=== PATIENT | male | born 1950 ===

== ENCOUNTER 2017-12-23 17:17 | Emergency (ER) | payer OTHER ==
[2017-12-23 17:17] VITALS: BMI 30.7
[2017-12-23 17:37] VITALS: TEMP 98.1
--- NOTE | 2017-12-23 20:03 | C.PDOC ---
History Of Present Illness 67 y/o male presents to the ER complaining of generalized urticarial rash which began as a mild rash about 1 week ago. Patient reports that the rash has become progressively over the past week. Patient denies any change in voice, problem swallowing, and other complaints. Time Seen by Provider: 12/23/17 17:54 Chief Complaint (Nursing): Abnormal Skin Integrity History Per: Patient History/Exam Limitations: no limitations Onset/Duration Of Symptoms: Days Current Symptoms Are (Timing): Still Present Severity: Moderate Past Medical History Reviewed: Historical Data, Nursing Documentation, Vital Signs Vital Signs: Last Vital Signs Temp 98.1 F 12/23/17 17:35 Pulse 70 12/23/17 20:16 Resp 16 12/23/17 20:16 BP 156/88 H 12/23/17 20:16 Pulse Ox 97 12/23/17 20:16 - Medical History PMH: Asthma, Emphysema, Hypercholesterolemia Denies: Chronic Kidney Disease Surgical History: Appendectomy Family History: States: No Known Family Hx - Social History Hx Tobacco Use: Yes (former smoker) Hx Alcohol Use: Yes Hx Substance Use: No - Immunization History Hx Tetanus Toxoid Vaccination: No Hx Influenza Vaccination: No Hx Pneumococcal Vaccination: No Review Of Systems Except As Marked, All Systems Reviewed And Found Negative. Constitutional: Negative for: Fever, Chills Skin: Positive for: Rash Physical Exam - Physical Exam Appears: Non-toxic, No Acute Distress, Other (speaking in full sentences) Skin: Normal Color, Warm, Rash (generalized urticaria mainly in the back) Head: Atraumatic, Normacephalic Eye(s): bilateral: Normal Inspection Nose: Normal Oral Mucosa: Moist Neck: Supple Chest: Symmetrical Cardiovascular: Rhythm Regular Respiratory: Normal Breath Sounds, No Accessory Muscle Use, No Rales, No Rhonchi , No Wheezing Extremity: Normal ROM Neurological/Psych: Oriented x3, Normal Speech, Normal Motor, Normal Sensation ED Course And Treatment O2 Sat by Pulse Oximetry: 99 (RA) Pulse Ox Interpretation: Normal Progress Note: Patient given Benadryl PO, Pepcid IV, and Solu-Medrol IV. On re- evaluation, patient feels better. Disposition - Disposition Referrals: [facility] at [facility] [Outside] Disposition: HOME/ ROUTINE Disposition Time: 20:00 Condition: STABLE Additional Instructions: Follow up with PMD within 1-2 days. Return to ED if feel worse. 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 - Scribe Statement The provider has reviewed the documentation as recorded by the Laura Palmer Provider Attestation All medical record entries made by the Laura were at my direction and personally dictated by me. I have reviewed the chart and agree that the record accurately reflects my personal performance of the history, physical exam, medical decision making, and the department course for this patient. I have also personally directed, reviewed, and agree with the discharge instructions and disposition.
[2017-12-23 20:17] VITALS: BP 156/88; PULSE 70; RESP 16
[2017-12-23 20:36] VITALS: O2SAT 99
== END 2017-12-23 20:16 | disposition home or self-care (01) ==
LOC: C.ER 17:17
DX: L50.9 Urticaria, unspecified (principal); E78.00 Pure hypercholesterolemia, unspecified; J43.9 Emphysema, unspecified; Z87.891 Personal history of nicotine dependence
CPT/HCPCS: 96374; 96375; 99283; J2930

== ENCOUNTER 2018-06-25 10:14 | Emergency (ER) | payer OTHER ==
[2018-06-25 10:14] VITALS: BMI 30.7
[2018-06-25 10:31] VITALS: BP 164/91; PULSE 73; RESP 20; TEMP 98.5; O2SAT 99
--- NOTE | 2018-06-25 10:57 | C.PDOC ---
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 Patient reports that his leg twisted outward during the fall. Patient did not hit his head during the fall nor did he lose consciousness. Patient admits to limited range of motion at the knee joint and difficulty ambulating post fall. (Kyle,Jose Maria Martines) History Per: Patient History/Exam Limitations: no limitations Onset/Duration Of Symptoms: Hrs Current Symptoms Are (Timing): Still Present Severity: Moderate Pain Scale Rating Of: 7 Location: Left medial knee <KyleChelsykathrine Bobbi - Last Filed: 06/25/18 14:36> <Harris Chiu DO - Last Filed: 06/25/18 17:35> Chief Complaint (Nursing): Lower Extremity Problem/Injury Past Medical History - Medical History PMH: Asthma, Emphysema, Hypercholesterolemia Denies: Chronic Kidney Disease Surgical History: Appendectomy Family History: States: Unknown Family Hx - Social History Hx Tobacco Use: Yes (former smoker) Hx Alcohol Use: Yes Hx Substance Use: No - Immunization History Hx Tetanus Toxoid Vaccination: (unk) Hx Influenza Vaccination: No Hx Pneumococcal Vaccination: No <Melly Wrightchrissy Bobbi - Last Filed: 06/25/18 14:36> Vital Signs: Last Vital Signs Temp 98.5 F 06/25/18 10:27 Pulse 73 06/25/18 10:27 Resp 20 06/25/18 10:27 BP 164/91 H 06/25/18 10:27 Pulse Ox 99 06/25/18 14:40 Review Of Systems Constitutional: Negative for: Fever, Chills, Weakness Eyes: Negative for: Pain Cardiovascular: Negative for: Chest Pain, Palpitations, Orthopnea Respiratory: Negative for: Shortness of Breath Musculoskeletal: Positive for: Leg Pain, Other (Left medial knee pain ) Neurological: Negative for: Weakness, Confusion, Altered Mental Status, Headache , Dizziness <MonroeChelsykathrine Bobbi - Last Filed: 06/25/18 14:36> Physical Exam - Physical Exam Appears: Well Skin: Normal Color, Warm Head: Atraumatic, Normacephalic Eye(s): bilateral: PERRL, EOMI Oral Mucosa: Moist Neck: Normal, Normal ROM Cardiovascular: Rhythm Regular Respiratory: Normal Breath Sounds Gastrointestinal/Abdominal: Normal Exam, Bowel Sounds, Soft, Tenderness Back: Normal Inspection Extremity: Other (Left medial knee pain; decrease range of motion with flexion, extension and internal and external rotation. Normal ROM at the ankle joint and DP/PT Pulses present ) Extremity: Left: Bony Point Tenderness (Knee Joint ) Pulses: Left Dorsalis Pedis: Normal Neurological/Psych: Oriented x3, Normal Speech, Normal Cognition, Normal Cranial Nerves <Jose Maria Wright - Last Filed: 06/25/18 14:36> ED Course And Treatment O2 Sat by Pulse Oximetry: 99 <Jose Maria Wright - Last Filed: 06/25/18 14:36> Medical Decision Making <Jose Maria Wright - Last Filed: 06/25/18 14:36> <Harris Chiu DO - Last Filed: 06/25/18 17:35> Medical Decision Making: Left Knee X-ray:No fracture or lytic lesion appreciated. No dislocation. Osteoarthrosis-medial femoral tibial compartment most notably affected Left Hip X-ray :No fracture or dislocation. Bilateral hip osteoarthrosis. Inferior lumbosacral marginal osteophytosis and blending facet hypertrophic arthrosis suggested Left tibula/fibula X-ray : Unremarkable radiographs of the left tibia and fibula. (Jose Maria Wright) Disposition - Disposition Disposition Time: 13:30 <Jose Maria Wright - Last Filed: 06/25/18 14:36> - Disposition Disposition Time: 12:40 <Harris Chiu DO - Last Filed: 06/25/18 17:35> - Disposition Referrals: [facility] [Outside] [facility] [Outside] Disposition: HOME/ ROUTINE Condition: STABLE Additional Instructions: MARCELLA DEMARCO, thank you for letting us take care of you today. The emergency medical care you received today was directed at your acute symptoms. If you were prescribed any medication, please fill it and take as directed. It may take several days for your symptoms to resolve. Return to the Emergency Department if your symptoms worsen, do not improve, or if you have any other problems. Please contact your doctor or call one of the physicians/clinics you have been referred to that are listed on the Patient Visit Information form that is included in your discharge packet. Bring any paperwork you were given at discharge with you along with any medications you are taking to your follow up visit. Our treatment cannot replace ongoing medical care by a primary care provider outside of the emergency department. Thank you for allowing the [facility] team to be part of your care today. Follow up with the clinic in 3-5 days for re-evaluation and further management. MARCELLA DAV, maricruz por dejarnos atenderlo hoy. La atencin mdica de emergencia que recibi hoy estaba dirigida a smitha sntomas agudos. Si le prescribieron alg n medicamento, llnelo y tome segn las indicaciones. Smitha sntomas pueden tardar varios uribe en resolverse. Regrese al Departamento de Emergencia si smitha s ntomas empeoran, no mejoran o si tiene algn otro problema. Comunquese con calvillo mdico o llame a anastacia de los mdicos / clnicas a los que fritz sido referido que figura en el formulario de Informacin de visita del paciente que se incluye en calvillo paquete de terrence. Traiga todos los documentos que recibi al momento del terrence junto con los medicamentos que est tomando en calvillo visita de seguimiento. Nuestro tratamiento no puede reemplazar la atencin mdica en curso por un proveedor de atencin primaria fuera del departamento de emergencia. Maricruz por permitir que el equipo de [facility] sea parte de calvillo cuidado hoy. Jocelin un seguimiento con la clnica en 3-5 uribe para la reevaluacin y la administracin adicional. Prescriptions: Ibuprofen [Motrin] 600 mg PO Q6 PRN #20 tab PRN Reason: Pain, Moderate (4-7) Instructions: Osteoarthritis (DC), Knee Pain (DC) Forms: Gen Discharge Inst Georgian, [employer] (Georgian), Work Excuse Print Language: TURKMEN - Clinical Impression Clinical Impression: Pain of left knee after injury - PA / ACCORDION MAKER / Resident Statement / has reviewed & agrees with the documentation as recorded. / has examined the patient and agrees with the treatment plan. <Harris Chiu DO - Last Filed: 06/25/18 17:35>
--- NOTE | 2018-06-25 12:32 | RAD ---
Date of service: 06/25/2018 PROCEDURE: Radiographs of the left tibia and fibula. HISTORY: Status post fall from 2-3 feet ladder COMPARISON: None available. TECHNIQUE: Frontal and lateral views obtained. FINDINGS: BONES: No fracture or destructive lesion. JOINT SPACES: Unremarkable. OTHER FINDINGS: None. IMPRESSION: Unremarkable radiographs of the left tibia and fibula.
--- NOTE | 2018-06-25 12:33 | RAD ---
Date of service: 06/25/2018 PROCEDURE: Left Knee Radiographs. HISTORY: Pain. COMPARISON: None. FINDINGS: BONES: No fracture appreciated JOINTS: Osteoarthrosis JOINT EFFUSION: None. OTHER FINDINGS: None. IMPRESSION: No fracture or lytic lesion appreciated. No dislocation. Osteoarthrosis-medial femoral tibial compartment most notably affected
--- NOTE | 2018-06-25 12:37 | RAD ---
Date of service: 06/25/2018 PROCEDURE: HISTORY: Status fall from 2-3 ft ladder COMPARISON: None TECHNIQUE: AP pelvis and frog's leg view. FINDINGS: Superolateral and inferomedial acetabular spurring. Minimal bilateral superolateral hip joint space narrowing. No fracture or dislocation. No lytic lesions. Sacral iliac and pubic symphyseal joints without gross significant appearing arthrosis. Inferior lumbosacral marginal osteophytosis and blending facet hypertrophic arthrosis suggested IMPRESSION: No fracture or dislocation. Bilateral hip osteoarthrosis Inferior lumbosacral marginal osteophytosis and blending facet hypertrophic arthrosis suggested
== END 2018-06-25 13:31 | disposition home or self-care (01) ==
LOC: C.ER 10:14
DX: M25.562 Pain in left knee (principal)

== ENCOUNTER 2018-08-03 16:40 | Emergency (ER) | payer OTHER ==
[2018-08-03 16:40] VITALS: BMI 30.7
--- NOTE | 2018-08-03 16:45 | C.PDOC ---
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 As per pt, " was closing work site and heavy metal beam fell down on top of Right foot". Pt reports, pain is localized over dorsum of Right foot, small puncture wound, unable to ambulate due to pain over Right foot. Otherwise, pt denies head injury , LOC, syncope, denies obvious deformity, weakness, sensory or vascular deficits to Right foot. Time Seen by Provider: 08/03/18 16:42 Chief Complaint (Nursing): Lower Extremity Problem/Injury History Per: Patient Onset/Duration Of Symptoms: Sudden Onset Past Medical History Reviewed: Historical Data, Nursing Documentation, Vital Signs Vital Signs: Last Vital Signs Temp 98.7 F 08/03/18 17:12 Pulse 82 08/03/18 17:12 Resp 18 08/03/18 17:12 BP 172/97 H 08/03/18 17:12 Pulse Ox 98 08/03/18 17:26 - Medical History PMH: Asthma, Emphysema, Hypercholesterolemia Denies: Chronic Kidney Disease Surgical History: Appendectomy Family History: States: Unknown Family Hx - Social History Hx Tobacco Use: Yes (former smoker) Hx Alcohol Use: Yes Hx Substance Use: No - Immunization History Hx Tetanus Toxoid Vaccination: No (unk) Hx Influenza Vaccination: No Hx Pneumococcal Vaccination: No Review Of Systems Except As Marked, All Systems Reviewed And Found Negative. Constitutional: Negative for: Fever, Chills Eyes: Negative for: Vision Change ENT: Negative for: Throat Pain Cardiovascular: Negative for: Chest Pain Respiratory: Negative for: Shortness of Breath Gastrointestinal: Negative for: Nausea, Vomiting Musculoskeletal: Positive for: Foot Pain (Right ). Negative for: Neck Pain, Back Pain Skin: Positive for: Lesions Neurological: Negative for: Weakness, Numbness, Altered Mental Status, Headache , Dizziness Physical Exam - Physical Exam Appears: Well, Non-toxic, Other (appears anxious, in pain) Skin: Normal Color, Warm, Other (small puncture woun lina dorsal aspect Right foot with small localized hematoma.) Head: Atraumatic, Normacephalic Eye(s): bilateral: PERRL Extremity: Normal ROM (decrease over right foot du eto pain), Tenderness ( diffuse dorsal asepct Right foot), No Calf Tenderness, Capillary Refill (less than 2 sec to Right foot), No Deformity, Swelling (dorsal aspect Right foot) Pulses: Right Femoral: Normal, Right Dorsalis Pedis: Normal DTR: Ankle (R): 2+ Neurological/Psych: Oriented x3, Normal Speech, Normal Motor, Normal Sensation ED Course And Treatment O2 Sat by Pulse Oximetry: 98 Pulse Ox Interpretation: Normal - Other Rad Right foot X-Ray: Interpreted by Me, Read By Radiologist Interpretation: (-) acute fx or dislocation Progress Note: Tetanus given. Puncture wound over dorsal aspect right foot thoroughly cleaned, closed with skin adhesives. Imaging review (-) acute fx. case discussed with Podiatry resident, who eval pt in ED. Compression dressing applied. Pt was provided crutches for ambulation/partial weight bearing. Pt advised and ref. to f/u with Podiatry Clinic on Friday aftrenoon for re-eval. return to Ed at any time if any worsening or new changes. Laceration - Laceration Repair Dorsal aspect Right foot Wound Length (In cm): 1cm Description Of Wound: Linear Wound Cleansed With: Betadine Wound Examination: Irrigated With Saline, No FB With Wound Exploration, No Tendon Injury With Wound Exploration Wound Closure: Steri Strips, Skin Glue Wound Complexity: Simple Disposition Counseled Patient/Family Regarding: Studies Performed, Diagnosis, Need For Followup, Rx Given - Disposition Referrals: [facility] [Outside] Podiatry Clinic [Outside] Disposition: HOME/ ROUTINE Disposition Time: 17:25 Condition: STABLE Additional Instructions: RICE-REST,ICE,COMPRESSION,ELEVATION TAKE PAIN MEDICATION NEED PRESCRIBED FOLLOW UP WITH PODIATRY CLINIC ON FRIDAY AFTERNOON 12PM-3PM FOR RE-EVALUATION. RETURN TO ED AT ANY TIME IF ANY WORSENING OR NEW CHANGES./ Prescriptions: traMADol [Ultram] 50 mg PO TID #10 tab Instructions: Contusion (DC), Foot Sprain (DC) Forms: [employer] Connect (Lithuanian), Work Excuse Print Language: PORTUGUESE - Clinical Impression Clinical Impression: Foot contusion, Hematoma
[2018-08-03] MEDS ORDERED: Tetanus/Diphtheria Toxoids 0.5 ml Syringe IM ONE ×2 (16:51→16:57)
[2018-08-03 17:16] VITALS: BP 172/97; PULSE 82; RESP 18; TEMP 98.7; O2SAT 98
--- NOTE | 2018-08-03 17:17 | RAD ---
Date of service: 08/03/2018 PROCEDURE: Right Foot Radiographs. HISTORY: injury COMPARISON: None. FINDINGS: BONES: Bone alignment and mineralization are normal. There is no acute displaced fracture or bone destruction. JOINTS: Normal. SOFT TISSUES: Moderate dorsal soft tissue swelling OTHER FINDINGS: None. IMPRESSION: No acute fracture or dislocation.
--- NOTE | 2018-08-03 18:12 | CP.PCM.CON ---
History of Present Illness - History of Present Illness History of Present Illness: Podiatry consult note for Dr. Nassar: 68 yo seen and evaluated in the ED for right foot trauma. States that he was at work a few hours ago and he dropped a 100 pound window frame on his foot. States that he was unable to walk after the incident happened. States that all the pain is in the middle and on the top of his right foot and he does not have pain in his toes or in his leg. Denies N/V/f/c/SOB/CP/ pain in calf. Has no other pedal complaints at this time. PMHx asthma, emphysema, CHF PSHx appendectomy All NKDA Past Patient History - Past Medical History & Family History Past Medical History?: Yes - Past Social History Smoking Status: Former Smoker - CARDIAC Hx Hypercholesterolemia: Yes - PULMONARY Hx Asthma: Yes Hx Emphysema: Yes - NEUROLOGICAL Hx Neurological Disorder: No - HEENT Hx HEENT Problems: Yes Other/Comment: Right eye cataract- surgery - RENAL Hx Chronic Kidney Disease: No - ENDOCRINE/METABOLIC Hx Endocrine Disorders: No - HEMATOLOGICAL/ONCOLOGICAL Hx Blood Disorders: No - INTEGUMENTARY Hx Dermatological Problems: No - MUSCULOSKELETAL/RHEUMATOLOGICAL Hx Musculoskeletal Disorders: Yes Hx Falls: No Other/Comment: right knee surgery states over 10 years ago, states orginal problem has been resolved - GASTROINTESTINAL Hx Gastrointestinal Disorders: No - GENITOURINARY/GYNECOLOGICAL Hx Genitourinary Disorders: No - PSYCHIATRIC Hx Substance Use: No - SURGICAL HISTORY Hx Appendectomy: Yes - ANESTHESIA Hx Anesthesia: Yes Hx Anesthesia Reactions: No Hx Malignant Hyperthermia: No Meds Home Medications: Home Medication List Medication Instructions Recorded Confirmed Type traMADol [Ultram] 50 mg PO TID #10 tab 08/03/18 Rx Allergies/Adverse Reactions: Allergies Allergy/AdvReac Type Severity Reaction Status Date / Time No Known Allergies Allergy Verified 08/03/18 16:46 Physical Exam - Constitutional Appears: Well, Non-toxic, No Acute Distress - Head Exam Head Exam: ATRAUMATIC, NORMOCEPHALIC - Extremities Exam Additional comments: RLE focused exam Vasc: DP pulse nonpalpable secondary to guarding on palpation, PT 1/4; cap refill <3 seconds to all digits; mild edema noted at dorsal midfoot; temp gradient warm to cool from proximal to distal Derm: superficial abrasion noted to the dorsum of the midfoot, does not probe, no pus or purulent drainage, mild erythema adjacent to abrasion, no streaking, no clinical signs of infection; mild eccyhmosis about the trauma site Ortho: severe pain on palpation at the dorsal midfoot, no pain at the calcaneus , achilles, or lower leg, no pain at the toes; piano bull test unable to perform due to guarding; ROM at the ankle wnl and does not elicit pain; pain on extending and flexing toes Neuro: gross and protective sensation intact - Neurological Exam Neurological exam: Alert, Oriented x3 - Psychiatric Exam Psychiatric exam: Normal Affect, Normal Mood Results - Vital Signs Recent Vital Signs: Last Vital Signs Temp 98.7 F 08/03/18 17:12 Pulse 82 08/03/18 17:12 Resp 18 08/03/18 17:12 BP 172/97 H 08/03/18 17:12 Pulse Ox 98 08/03/18 17:52 Assessment & Plan - Assessment and Plan (Free Text) Assessment: 68 yo seen and evaluated in the ED for right foot contusion Plan: Patient seen and evaluated Discussed in detail with Dr. Nassar X-rays reviewed - no acute fracture noted to right foot Steristrips applied at abrasion at the dorsal midfoot Modified burgos compression dressing applied to the right lower leg Surgical shoe dispensed and instructed patient ambulate to tolerance at the heel Will follow up in clinic with Dr. Nassar in one week Patient stable for discharge - thank you for the consult - Date & Time Date: 08/03/18 Time: 18:19
== END 2018-08-03 18:21 | disposition home or self-care (01) ==
LOC: C.ER 16:40
DX: S90.31XA Contusion of right foot, initial encounter (principal); W22.8XXA Striking against or struck by other objects, initial encounter; Y92.89 Other specified places as the place of occurrence of the external cause; Y99.0 Civilian activity done for income or pay; Z23 Encounter for immunization

== ENCOUNTER 2018-11-19 08:48 | Outpatient (CLI) | payer OTHER | END 2018-11-19 08:49 | disposition home or self-care (01) | LOC: C.CARD 08:49 ==

== ENCOUNTER 2018-12-04 10:03 | Outpatient (CLI) | payer SELFPAY, OTHER | END 2018-12-04 10:04 | disposition home or self-care (01) | LOC: C.RT 10:03 | DX: J43.9 Emphysema, unspecified (principal) ==

== ENCOUNTER 2019-02-16 19:51 | Inpatient (IN) | payer MEDICARE, SELFPAY ==
[2019-02-16 19:52] VITALS: BMI 30.7
--- NOTE | 2019-02-16 20:34 | C.PDOC ---
History Of Present Illness Patient presents to the ED c/o abdominal pain, reports he sneezed and felt "something explode inside his abdomen". Patient denies fever, chills, nausea, vomit, diarrhea, CP, SOB, palpitations. Time Seen by Provider: 02/16/19 20:33 Chief Complaint (Nursing): Abdominal Pain History Per: Patient History/Exam Limitations: no limitations Onset/Duration Of Symptoms: Hrs Current Symptoms Are (Timing): Still Present Severity: Severe Pain Scale Rating Of: 7 Location Of Pain/Discomfort: Periumbilical Quality Of Discomfort: "Pain" Associated Symptoms: denies: Nausea, Vomiting, Diarrhea, Urinary Symptoms Recent travel outside of the [place]: No Additional History Per: Patient Past Medical History Reviewed: Historical Data, Nursing Documentation, Vital Signs Vital Signs: Last Vital Signs Temp 98.0 F 02/16/19 19:59 Pulse 103 H 02/16/19 19:59 Resp 18 02/16/19 19:59 BP 149/92 H 02/16/19 19:59 Pulse Ox 95 02/16/19 19:59 - Medical History PMH: Asthma, Emphysema, Hypercholesterolemia Denies: Chronic Kidney Disease Surgical History: Appendectomy Family History: States: Unknown Family Hx - Social History Hx Tobacco Use: Yes (former smoker) Hx Alcohol Use: Yes Hx Substance Use: No - Immunization History Hx Tetanus Toxoid Vaccination: No (unk) Hx Influenza Vaccination: Yes Hx Pneumococcal Vaccination: No Review Of Systems Constitutional: Negative for: Fever, Chills Cardiovascular: Negative for: Chest Pain Respiratory: Negative for: Shortness of Breath Gastrointestinal: Positive for: Abdominal Pain. Negative for: Nausea, Vomiting, Diarrhea Genitourinary: Negative for: Dysuria Skin: Negative for: Rash Neurological: Negative for: Weakness, Numbness Physical Exam - Physical Exam Appears: Non-toxic, In Acute Distress Skin: Warm, Dry Head: Normacephalic Eye(s): bilateral: Normal Inspection Oral Mucosa: Moist Neck: Supple Chest: Symmetrical Cardiovascular: Rhythm Regular Respiratory: No Rales, No Rhonchi, Wheezing (scattered) Gastrointestinal/Abdominal: Distention, No Guarding, No Rebound, Hernia (large 10x12 cm supraumbilical hernia, erythematous, tender to palpation, unable to reduce) Extremity: Bilateral: Atraumatic, Normal Color And Temperature, Normal ROM Neurological/Psych: Oriented x3, Normal Speech, Normal Cognition Gait: Steady ED Course And Treatment - Laboratory Results Result Diagrams: 02/16/19 21:31 02/16/19 21:31 ECG: Interpreted By Me, Viewed By Me ECG Rhythm: Sinus Rhythm (83), L BBB O2 Sat by Pulse Oximetry: 95 (ON RA) Pulse Ox Interpretation: Normal - CT Scan/US CT abd/pelvis Other Rad Studies (CT/US): Read By Radiologist, Radiology Report Reviewed CT/US Interpretation: EXAM: CT Abdomen and Pelvis with IV contrast. CLINICAL HISTORY: Abd pain and incarcerated hernia. TECHNIQUE: Axial computed tomography images of the abdomen and pelvis with intravenous contrast. 0.00 mGy-cm. CONTRAST: With; 100MLS VISI 320. COMPARISON: None provided. FINDINGS: LUNG BASES: The visualized heart is mildly enlarged. LIVER: Mild diffuse fatty infiltration of liver. GALLBLADDER AND BILE DUCTS: The gallbladder appears within normal limits. No radioopaque gallstones are seen. No biliary ductal dilatation is evident. PANCREAS: Unremarkable. SPLEEN: Unremarkable. ADRENAL GLANDS: Unremarkable. KIDNEYS, URETERS, AND BLADDER: Small cyst at the lower pole of the right kidney measuring 1.2 cm. Bladder is decompressed. STOMACH AND BOWEL: Tiny hiatal hernia. Stomach is decompressed. APPENDIX: No evidence of acute appendicitis on CT examination. PERITONEUM: No free fluid. No free air. LYMPH NODES: No lymphadenopathy is evident. REPRODUCTIVE: Unremarkable as visualized. VASCULATURE: Mild atherosclerosis of the lower abdominal aorta. BONES: Mild multilevel degenerative spine changes. MISCELLANEOUS: At the upper abdomen in the midline is a ventral hernia containing only fat. This measures 8.0 x 3.2 cm on series 2, image 28. There is some inflammatory stranding within this fat suggesting the possibility of strangulation or incarceration. Please correlate clinically. There are small, left greater than right fat containing inguinal hernias. IMPRESSION: 1. The visualized heart is mildly enlarged. 2. Mild diffuse fatty infiltration of liver. 3. At the upper abdomen in the midline is a ventral hernia containing only fat. This measures 8.0 x 3.2 cm on series 2, image 28. There is some inflammatory stranding within this fat suggesting the possibility of strangulation or incarceration. Please correlate clinically. 4. Small cyst at t he lower pole of the right kidney measuring 1.2 cm. 5. Tiny hiatal hernia. 6. There are small, left greater than right fat containing inguinal hernias. . Electronically signed on Feb 17, 2019 12:40:47 AM EDT by: Adair Mortensen M.D., Certified by [facility], Diagnostic Radiology Progress Note: Plan: - VBG. - CT abd/pelvis. - EKG. - Labs. - Morphine 2 mg IVP. - Protonix 40 mg IVP. - IV fluids. - Zofran 4 mg IVP. - Zosyn IVPB. - UA. spoke with the vice president talent management. will see the pt Critical Care Time - Critical Care Note Total Time (in mins): 30 Documented critical care: time excludes all time spent performing seperately billable procedures. Disposition Discussed With Dr.: Mehrdad Caba Comment: accepted the pt on his service and took over the care at 12:54 AM Counseled Patient/Family Regarding: Studies Performed, Diagnosis - Disposition Disposition: HOSPITALIZED Disposition Time: 20:33 Condition: GUARDED Forms: [employer] (Thai) - Clinical Impression Clinical Impression: Abdominal pain, Incarcerated hernia - Scribe Statement The provider has reviewed the documentation as recorded by the Scribe Jesse Cavazos All medical record entries made by the Scribe were at my direction and personally dictated by me. I have reviewed the chart and agree that the record accurately reflects my personal performance of the history, physical exam, medical decision making, and the department course for this patient. I have also personally directed, reviewed, and agree with the discharge instructions and disposition. Decision To Admit - Pt Status Changed To: Hospital Disposition Of: Inpatient - Admit Certification Admit to Inpatient:: After my assessment, the patient will require hospitalization for at least two midnights. This is because of the severity of symptoms shown, intensity of services needed, and/or the medical risk in this patient being treated as an outpatient. - InPatient: Physician Admission Certification:: After my assessment, the patient will require hospitalization for at least two midnights. This is because of the severity of symptoms shown, intensity of services needed, and/or the medical ri sk in this patient being treated as an outpatient. - . Bed Request Type: Regular Admitting Physician: Mehrdad Caba Patient Diagnosis: Abdominal pain, Incarcerated hernia
[2019-02-16] MEDS ORDERED: Piperacillin/Tazobact 3.375 GM in Sodium Chloride 100 ML IVPB STA (21:09)
[2019-02-16] MEDS ORDERED: Sodium Chloride 0.9% 1,000 ML IV ONE (21:09)
[2019-02-16 21:28] LABS: VENOUS BLOOD GAS BASE EXCESS -3.4 mmol/L (0.0-2.0); VENOUS BLOOD GAS PCO2 32 mmHg (40-60); VENOUS BLOOD GAS PO2 46 mm/Hg (30-55); VENOUS BLOOD PH 7.41 (7.32-7.43)
[2019-02-16 21:37] LABS: BASO # 0.1 K/uL (0.0-0.2); BASO % 1.2 % (0.0-2.0); EOS # 0.5 K/uL (0.0-0.7); EOS % 5.7 % (0.0-4.0); HEMOGLOBIN 14.6 g/dL (12.0-18.0); LYMPH # 3.1 K/uL (1.0-4.3); LYMPH % 37.3 % (20.0-40.0); MEAN CELL VOLUME 92.2 fL (80.0-94.0); MEAN CORPUSCULAR HEMOGLOBIN 30.7 pg (27.0-31.0); MEAN CORPUSCULAR HGB CONC 33.3 g/dL (33.0-37.0); MEAN PLATELET VOLUME 8.6 fL (7.2-11.7); MONO # 1.1 K/uL (0.0-0.8); MONO % 12.6 % (0.0-10.0); NEUT # 3.6 K/uL (1.8-7.0); NEUT % 43.2 % (50.0-75.0); NRBC % 0.1 % (0.0-2.0); RBC 4.74 Mil/uL (4.40-5.90); RED CELL DISTRIBUTION WIDTH 13.6 % (11.5-14.5); WHITE BLOOD COUNT 8.4 K/uL (4.8-10.8)
[2019-02-16 21:48] LABS: ALB/GLOB RATIO 1.4 (1.0-2.1); ALBUMIN 4.4 g/dL (3.5-5.0); ALT/SGPT 32 U/L (21-72); AST/SGOT 33 U/L (17-59); BLOOD UREA NITROGEN 17 mg/dL (9-20); CALCIUM 9.6 mg/dl (8.6-10.4); GFR NON-AFRICAN AMERICAN 55; LIPASE 111 U/L (23-300)
[2019-02-16 21:52] LABS: INR 1.1; PROTHROMBIN TIME 12.2 SECONDS (9.7-12.2)
[2019-02-16] MEDS ORDERED: Piperacillin/Tazobact 3.375 gm 100 ML IVPB ONE (22:00)
[2019-02-16] MEDS ORDERED: Iodixanol 320 MG/ML 100 ML BOTTLE IV ONE (22:04)
[2019-02-16 22:50] LABS: SQUAMOUS EPITHIAL < 1 /hpf (0-5); URINE BILIRUBIN NEGATIVE (NEGATIVE); URINE BLOOD NEGATIVE (NEGATIVE); URINE CLARITY Clear (Clear); URINE COLOR Yellow (YELLOW); URINE GLUCOSE (UA) NORMAL (Normal); URINE LEUKOCYTE ESTERASE NEG Leu/uL (Negative); URINE PROTEIN NEGATIVE (NEGATIVE); URINE UROBILINOGEN NORMAL mg/dL (0.2-1.0)
[2019-02-17] MEDS ORDERED: Lactated Ringer's 1,000 ML IV ONE (01:33)
[2019-02-17] MEDS ORDERED: Lactated Ringer's 1,000 ML IV SCH ×2 (01:45→02:09)
[2019-02-17] MEDS ORDERED: Piperacillin/Tazobact 3.375 GM in Sodium Chloride 100 ML IVPB SCH (01:45)
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
--- NOTE | 2019-02-17 02:36 | CP.PCM.HP ---
<Cara Garcia - Last Filed: 02/17/19 06:13> History of Present Illness - History of Present Illness History of Present Illness: cc: "my stomach popped" Mr. Vargas is a M with a PMH CHF, COPD, HLD, CAD presents to the ED with irreducible bump in his stomach. He reports having a hernia for years, but after coughing fit this afternoon, the bump does not go down and started to hurt. He was able to eat lunch immediately before the bursting sensation. He has not had a BM nor passed gas since the bursting feeling. Walking, sitting up, and coughing make the bulge bigger. The patient did not do anything to try to make the bulge smaller. Denies fever, chills, chest pain, shortness of breath, headache, palpitations. He recently got foot surgery with Dr. Nassar. He has been attending follow up appointments but still has two sutures remaining. PMH: CHF, COPD, HLD, CAD Med: Ventolin, Symbicort, Incruse Ellipta, Coreg, Cozaar, Spiriva All: NKDA PSxHx: Appy, Total knee 2010, R foot 11/2018, tilt table for syncope FamHx: unknown SocHx: quit smoking 16 years ago, social drinking, denies drug. 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 Full Code Proxy: Inna [phone] Present on Admission - Present on Admission Any Indicators Present on Admission: No Review of Systems - Constitutional Constitutional: absent: Chills, Fever, Weakness - Gastrointestinal Gastrointestinal: absent: Constipation, Diarrhea, Nausea, Vomiting - Genitourinary Genitourinary: absent: Dysuria Past Patient History - Infectious Disease Hx of Infectious Diseases: None - Past Medical History & Family History Past Medical History?: Yes - Past Social History Smoking Status: Former Smoker Alcohol: Social Drugs: Denies - CARDIAC Hx Hypercholesterolemia: Yes - PULMONARY Hx Asthma: Yes Hx Emphysema: Yes - NEUROLOGICAL Hx Neurological Disorder: No - HEENT Hx HEENT Problems: Yes Other/Comment: Right eye cataract- surgery - RENAL Hx Chronic Kidney Disease: No - ENDOCRINE/METABOLIC Hx Endocrine Disorders: No - HEMATOLOGICAL/ONCOLOGICAL Hx Blood Disorders: No - INTEGUMENTARY Hx Dermatological Problems: No - MUSCULOSKELETAL/RHEUMATOLOGICAL Hx Musculoskeletal Disorders: Yes Hx Falls: No Other/Comment: right knee surgery states over 10 years ago, states orginal problem has been resolved - GASTROINTESTINAL Hx Gastrointestinal Disorders: No - GENITOURINARY/GYNECOLOGICAL Hx Genitourinary Disorders: No - PSYCHIATRIC Hx Substance Use: No - SURGICAL HISTORY Hx Appendectomy: Yes - ANESTHESIA Hx Anesthesia: Yes Hx Anesthesia Reactions: No Hx Malignant Hyperthermia: No Meds Allergies/Adverse Reactions: Allergies Allergy/AdvReac Type Severity Reaction Status Date / Time No Known Allergies Allergy Verified 02/16/19 20:02 Physical Exam - Constitutional Appears: Well, Non-toxic, No Acute Distress - Head Exam Head Exam: ATRAUMATIC, NORMOCEPHALIC - Eye Exam Eye Exam: EOMI, Normal appearance, PERRL Pupil Exam: NORMAL ACCOMODATION Additional comments: glasses - ENT Exam ENT Exam: Mucous Membranes Moist - Neck Exam Neck exam: Positive for: Normal Inspection - Respiratory Exam Respiratory Exam: Wheezes, NORMAL BREATHING PATTERN Additional comments: diffuse expiratory wheezes supplemental O2 via NC - Cardiovascular Exam Cardiovascular Exam: REGULAR RHYTHM, +S1, +S2. absent: Systolic Murmur - GI/Abdominal Exam GI & Abdominal Exam: Distended, Guarding, Hernia (umbilical and large ventral hernia, unreducible), Hypoactive Bowel Sounds, Soft. absent: Rigid Additional comments: obese - Extremities Exam Extremities exam: Positive for: pedal pulses present - Back Exam Back exam: absent: CVA tenderness (L), CVA tenderness (R) - Neurological Exam Neurological exam: Alert, CN II-XII Intact, Oriented x3, Reflexes Normal - Skin Skin Exam: Dry, Intact, Normal Color, Warm Results - Vital Signs Recent Vital Signs: Last Vital Signs Temp 98.7 F 02/17/19 00:17 Pulse 76 02/17/19 00:17 Resp 18 02/17/19 00:17 BP 132/85 02/17/19 00:17 Pulse Ox 95 02/17/19 00:55 - Labs Result Diagrams: 02/16/19 21:31 02/16/19 21:31 Labs: Laboratory Results - last 24 hr 02/16/19 02/16/19 02/16/19 21:25 21:31 21:31 WBC 8.4 RBC 4.74 Hgb 14.6 Hct 43.7 MCV 92.2 MCH 30.7 MCHC 33.3 RDW 13.6 Plt Count 246 MPV 8.6 Neut % (Auto) 43.2 L Lymph % (Auto) 37.3 [place] % (Auto) 12.6 H Eos % (Auto) 5.7 H Baso % (Auto) 1.2 Neut # (Auto) 3.6 Lymph # (Auto) 3.1 [place] # (Auto) 1.1 H Eos # (Auto) 0.5 Baso # (Auto) 0.1 PT 12.2 INR 1.1 APTT 39 H pO2 46 VBG pH 7.41 VBG pCO2 32 L VBG HCO3 21.9 VBG Total CO2 21.3 L VBG O2 Sat (Calc) 87.7 H VBG Base Excess -3.4 L VBG Potassium 2.6 L Sodium 146.0 Chloride 115.0 H Glucose 61 L Lactate 1.3 Potassium Carbon Dioxide Anion Gap BUN Creatinine Est GFR ( Amer) Est GFR (Non-Af Amer) Random Glucose Calcium Total Bilirubin AST ALT Alkaline Phosphatase Total Protein Albumin Globulin Albumin/Globulin Ratio Lipase Venous Blood Potassium 2.6 L Urine Color Urine Clarity Urine pH Ur Specific [place] Urine Protein Urine Glucose (UA) Urine Ketones Urine Blood Urine Nitrate Urine Bilirubin Urine Urobilinogen Ur Leukocyte Esterase Urine WBC (Auto) Urine RBC (Auto) Ur Squamous Epith Cells 02/16/19 02/16/19 21:31 22:34 WBC RBC Hgb Hct MCV MCH MCHC RDW Plt Count MPV Neut % (Auto) Lymph % (Auto) [place] % (Auto) Eos % (Auto) Baso % (Auto) Neut # (Auto) Lymph # (Auto) [place] # (Auto) Eos # (Auto) Baso # (Auto) PT INR APTT pO2 VBG pH VBG pCO2 VBG HCO3 VBG Total CO2 VBG O2 Sat (Calc) VBG Base Excess VBG Potassium Sodium 141 Chloride 101 Glucose Lactate Potassium 4.5 Carbon Dioxide 30 Anion Gap 14 BUN 17 Creatinine 1.3 Est GFR ( Amer) > 60 Est GFR (Non-Af Amer) 55 Random Glucose 88 Calcium 9.6 Total Bilirubin 0.4 AST 33 ALT 32 Alkaline Phosphatase 66 Total Protein 7.6 Albumin 4.4 Globulin 3.2 Albumin/Globulin Ratio 1.4 Lipase 111 Venous Blood Potassium Urine Color Yellow Urine Clarity Clear Urine pH 6.0 Ur Specific [place] 1.016 Urine Protein Negative Urine Glucose (UA) Normal Urine Ketones Negative Urine Blood Negative Urine Nitrate Negative Urine Bilirubin Negative Urine Urobilinogen Normal Ur Leukocyte Esterase Neg Urine WBC (Auto) 1 Urine RBC (Auto) 2 Ur Squamous Epith Cells < 1 Assessment & Plan - Assessment and Plan (Free Text) Assessment: 68yo M PMH CHF, COPD, HLD admitted for strangulated ventral abdominal hernia. Plan: Incarcerated Ventral Abdominal hernia CT A/P with contrast (02/16): pending read. prelim: 8.0x3.2cm ventral hernia containing only fat with stranding suggesting the possibility of strangulation or incarceration. 1L NS, Zofran x1, Morphine 2mg, Protonix given in ED 1L LR bolus given per surgery - Zosyn 3.375gm IVPB q6 (started 02/16) - Morphine 0.5mg q4 prn for mild pain - Morphine 1mg q4 prn for mod pain - Zofran 4mg IVP q6 prn - considering patient's Hx of heart disease, NSAIDs CI - Surgery consulted: Dr. Felisha gilmore appreciated - NPO except meds for OR - f/u CXR - Cardio and Pulm consulted for clearance HFrEF EKG unchanged from 2017 ECHO (11/19/18): LVEF 41% with mild-mod systolic dysfunction, diastolic dysfunction - f/u BNP - home Coreg 3.125mg po BID - home Cozaar 25mg po daily - Cardio consulted: Dr. Liu - juan r appreciated COPD/Emphysema - Duonebs q6 ATC - Breo-Ellipta 1 puff daily - Spiriva 2 puffs daily - Pulmicort 0.5mg q12 - Pulm consulted: Dr. Garcia - juan r appreciated Hyperlipidemia - Crestor 5mg po HS Recent Foot Surgery - Pod consulted: Dr. Nassar - juan r appreciated PPx - DVT: chemical AC CI due to surgery, bilateral SCDs - GI: not indicated at this time - Diet: NPO except meds for OR tomorrow - IVF: LR@75; giving half maintenance due to not wanting to fluid overload (systolic and diastolic CHF) d/w Dr. Clifton Garcia PGY-1 - Date & Time Date: 02/17/19 Time: 13:15 <Mehrdad Caba - Last Filed: 02/17/19 07:15> Results - Vital Signs Recent Vital Signs: Last Vital Signs Temp 97.6 F 02/17/19 02:16 Pulse 83 02/17/19 02:48 Resp 20 02/17/19 03:34 BP 159/92 H 02/17/19 02:16 Pulse Ox 95 02/17/19 03:34 - Labs Result Diagrams: 02/16/19 21:31 02/16/19 21:31 Labs: Laboratory Results - last 24 hr 02/16/19 02/16/19 02/16/19 21:25 21:31 21:31 WBC 8.4 RBC 4.74 Hgb 14.6 Hct 43.7 MCV 92.2 MCH 30.7 MCHC 33.3 RDW 13.6 Plt Count 246 MPV 8.6 Neut % (Auto) 43.2 L Lymph % (Auto) 37.3 [place] % (Auto) 12.6 H Eos % (Auto) 5.7 H Baso % (Auto) 1.2 Neut # (Auto) 3.6 Lymph # (Auto) 3.1 [place] # (Auto) 1.1 H Eos # (Auto) 0.5 Baso # (Auto) 0.1 PT 12.2 INR 1.1 APTT 39 H pO2 46 VBG pH 7.41 VBG pCO2 32 L VBG HCO3 21.9 VBG Total CO2 21.3 L VBG O2 Sat (Calc) 87.7 H VBG Base Excess -3.4 L VBG Potassium 2.6 L Sodium 146.0 Chloride 115.0 H Glucose 61 L Lactate 1.3 Potassium Carbon Dioxide Anion Gap BUN Creatinine Est GFR ( Amer) Est GFR (Non-Af Amer) Random Glucose Calcium Total Bilirubin AST ALT Alkaline Phosphatase Total Protein Albumin Globulin Albumin/Globulin Ratio Lipase Venous Blood Potassium 2.6 L Urine Color Urine Clarity Urine pH Ur Specific [place] Urine Protein Urine Glucose (UA) Urine Ketones Urine Blood Urine Nitrate Urine Bilirubin Urine Urobilinogen Ur Leukocyte Esterase Urine WBC (Auto) Urine RBC (Auto) Ur Squamous Epith Cells 02/16/19 02/16/19 21:31 22:34 WBC RBC Hgb Hct MCV MCH MCHC RDW Plt Count MPV Neut % (Auto) Lymph % (Auto) [place] % (Auto) Eos % (Auto) Baso % (Auto) Neut # (Auto) Lymph # (Auto) [place] # (Auto) Eos # (Auto) Baso # (Auto) PT INR APTT pO2 VBG pH VBG pCO2 VBG HCO3 VBG Total CO2 VBG O2 Sat (Calc) VBG Base Excess VBG Potassium Sodium 141 Chloride 101 Glucose Lactate Potassium 4.5 Carbon Dioxide 30 Anion Gap 14 BUN 17 Creatinine 1.3 Est GFR ( Amer) > 60 Est GFR (Non-Af Amer) 55 Random Glucose 88 Calcium 9.6 Total Bilirubin 0.4 AST 33 ALT 32 Alkaline Phosphatase 66 Total Protein 7.6 Albumin 4.4 Globulin 3.2 Albumin/Globulin Ratio 1.4 Lipase 111 Venous Blood Potassium Urine Color Yellow Urine Clarity Clear Urine pH 6.0 Ur Specific [place] 1.016 Urine Protein Negative Urine Glucose (UA) Normal Urine Ketones Negative Urine Blood Negative Urine Nitrate Negative Urine Bilirubin Negative Urine Urobilinogen Normal Ur Leukocyte Esterase Neg Urine WBC (Auto) 1 Urine RBC (Auto) 2 Ur Squamous Epith Cells < 1 Attending/Attestation - Attestation I have personally seen and examined this patient.: Yes I have fully participated in the care of the patient.: Yes I have reviewed all pertinent clinical information: Yes Notes (Text): 02/17/19 07:14 This patient was seen together with resident Dr. Kennedi Garcia. History, Physical, Assessment and Plan, and all Orders were gone over with Dr. Garcia. Mehrdad Caba D.O.
[2019-02-17] MEDS: Albuterol-Ipratrop 3 mg / 0.5 (3 ml) UD INH SCH ×3 (02:41→21:14)
[2019-02-17] MEDS: Budesonide 0.5 mg/2 ml Inhal Susp UD INH SCH ×2 (02:47→08:39)
[2019-02-17] MEDS: Piperacillin/Tazobact 3.375 GM in Sodium Chloride 100 ML IVPB SCH ×2 (04:55→12:03)
[2019-02-17] MEDS ORDERED: Caffeine Citrated **INJ** 20 MG/ML IV ONE (07:50)
[2019-02-17] MEDS: Fluticasone-Vilanterol 200/25mcg Diskus INH SCH (08:39)
[2019-02-17] MEDS ORDERED: Budesonide 0.5 mg/2 ml Inhal Susp UD INH SCH (10:30)
[2019-02-17 10:38] LABS: ABG ALLEN TEST POS; ARTERIAL BLOOD GAS HEMOGLOBIN 14.1 g/dL (11.7-17.4); ARTERIAL BLOOD GAS O2 SAT 99.9 % (95-98); ARTERIAL BLOOD GAS PCO2 35 mm/Hg (35-45); ARTERIAL BLOOD GAS PH 7.46 (7.35-7.45); ARTERIAL BLOOD GAS PO2 171 mm/Hg (80-100)
[2019-02-17] MEDS ORDERED: MethylPREDNISolone 40 mg Vial ONE (10:40)
[2019-02-17] MEDS ORDERED: Midazolam 2 MG/2 ML VIAL ONE ×2 (10:42→11:49)
[2019-02-17] MEDS ORDERED: Propofol 10 mg/ml Inj (20 ML) ONE (10:42)
[2019-02-17] MEDS ORDERED: Lidocaine 2% Jelly (Uro-Jet) ONE (10:49)
[2019-02-17] MEDS ORDERED: HYDROmorphone 0.5 mg/0.5 ml ISec IVP PRN (10:51)
--- NOTE | 2019-02-17 10:53 | RAD ---
Date of service: 02/17/2019 HISTORY: pre-op COMPARISON: Chest radiographs 11/19/2018. TECHNIQUE: Chest PA and lateral views FINDINGS: LUNGS: No active pulmonary disease. PLEURA: No significant pleural effusion identified. No pneumothorax apparent. CARDIOVASCULAR: No aortic atherosclerotic calcification present. Normal cardiac size. No pulmonary vascular congestion. OSSEOUS STRUCTURES: No significant abnormalities. VISUALIZED UPPER ABDOMEN: Normal. OTHER FINDINGS: None. IMPRESSION: No acute cardiopulmonary disease appreciated.
--- NOTE | 2019-02-17 10:55 | CP.PCM.PN ---
<Clarisse Gabriel P - Last Filed: 02/17/19 21:25> Subjective - Date & Time of Evaluation Date of Evaluation: 02/17/19 Time of Evaluation: 14:00 - Subjective Subjective: Progress note for Dr. Garsia. Patient seen and examined following hernia repair. Patient is in good spirits states he feels well with only mild pain to surgical site. Denies chest pain, SOB, fever, chills. Objective - Vital Signs/Intake and Output Vital Signs (last 24 hours): Temp Pulse Resp BP Pulse Ox 97.9 F 81 20 135/78 96 02/17/19 08:08 02/17/19 08:08 02/17/19 08:08 02/17/19 08:08 02/17/19 08:08 Intake and Output: 02/17/19 02/17/19 06:59 18:59 Intake Total 450 Balance 450 - Medications Medications: Current Medications Albuterol Sulfate (Albuterol 0.083% Inhal Cristin (2.5 Mg/3 Ml) Ud) 2.5 mg INH ONCE PRN PRN Reason: Wheezing Albuterol/Ipratropium (Duoneb 3 Mg/0.5 Mg (3 Ml) Ud) 3 ml INH RQ6 [facility] Budesonide (Pulmicort Respules) 0.5 mg INH RQ12 [facility] Carvedilol (Coreg) 3.125 mg PO BID [facility] Last Admin: 02/17/19 09:52 Dose: Not Given Fluticasone/Vilanterol (Breo Ellipta 200-25 Mcg Inh) 1 puff INH RQD [facility] Last Admin: 02/17/19 08:39 Dose: Not Given Hydromorphone HCl (Dilaudid) 0.5 mg IVP Q5M PRN PRN Reason: Pain, moderate (4-7) Stop: 02/17/19 12:51 Piperacillin Sod/Tazobactam (Sod 3.375 gm/ Sodium Chloride) 100 mls @ 200 mls/hr IVPB Q8H [facility]; Protocol Last Admin: 02/17/19 04:55 Dose: 200 mls/hr Lactated Ringer's (Lactated Ringer's) 1,000 mls @ 75 mls/hr IV .[id number] [facility] Last Admin: 02/17/19 02:50 Dose: 75 mls/hr Losartan Potassium (Cozaar) 25 mg PO DAILY [facility] Last Admin: 02/17/19 09:51 Dose: Not Given Morphine Sulfate (Morphine) 1 mg IVP Q6 PRN PRN Reason: Pain, moderate (4-7) Morphine Sulfate (Morphine) 0.5 mg IVP Q6 PRN PRN Reason: Pain, Mild (1-3) Ondansetron HCl (Zofran Inj) 4 mg IVP Q6H PRN PRN Reason: Nausea/Vomiting Ondansetron HCl (Zofran Inj) 4 mg IVP ONCE PRN PRN Reason: Nausea/Vomiting Stop: 02/17/19 12:51 Rosuvastatin Calcium (Crestor) 5 mg PO HS [facility] Tiotropium [place] (Spiriva Inhalation Handihaler Device) 2 inhaler INH DAILY [facility] - Labs Labs: 02/16/19 21:31 02/16/19 21:31 PT 12.2 SECONDS (9.7-12.2) 02/16/19 21:31 INR 1.1 02/16/19 21:31 APTT 39 SECONDS (21-34) H 02/16/19 21:31 - Constitutional Appears: Non-toxic, No Acute Distress - Head Exam Head Exam: ATRAUMATIC, NORMOCEPHALIC - Eye Exam Eye Exam: EOMI, Normal appearance, PERRL - ENT Exam ENT Exam: Mucous Membranes Moist - Neck Exam Neck Exam: Full ROM - Respiratory Exam Respiratory Exam: Clear to Ausculation Bilateral. absent: Rales, Rhonchi, Wheezes, Respiratory Distress - Cardiovascular Exam Cardiovascular Exam: REGULAR RHYTHM, +S1, +S2 - GI/Abdominal Exam GI & Abdominal Exam: Normal Bowel Sounds. absent: Distended, Firm, Guarding, Rigid, Tenderness Additional comments: abdominal binder in place. Ventral abdominal incision. - Extremities Exam Extremities Exam: Full ROM, Normal Capillary Refill, Normal Inspection. absent: Calf Tenderness, Pedal Edema, Tenderness Additional comments: Stitches to R lateral foot, healing well, no signs of infection - Neurological Exam Neurological Exam: Alert, Awake, Oriented x3 Neuro motor strength exam: Left Upper Extremity: 5, Right Upper Extremity: 5, Left Lower Extremity: 5, Right Lower Extremity: 5 - Psychiatric Exam Psychiatric exam: Normal Affect, Normal Mood - Skin Skin Exam: Dry, Normal Color, Warm Assessment and Plan - Assessment and Plan (Free Text) Plan: 68yo M PMH CHF, COPD, HLD admitted for strangulated ventral abdominal hernia. Incarcerated Ventral Abdominal hernia CT A/P with contrast (02/16): pending read. prelim: 8.0x3.2cm ventral hernia containing only fat with stranding suggesting the possibility of strangulation or incarceration. 1L NS, Zofran x1, Morphine 2mg, Protonix given in ED 1L LR bolus given per surgery - Zosyn 3.375gm IVPB q6 (started 02/16) - Oxycodone 5mg Q6H PRN - Lidocaine patch - Zofran 4mg IVP q6 prn - considering patient's Hx of heart disease, NSAIDs CI - Surgery consulted: Dr. Baeza - recs appreciated - incarcerated ventral hernia repaired 02/17/19 - f/u surgery recs - CXR: no acute cardiopulm dz HFrEF EKG unchanged from 2017 - ECHO02/17/19: apical hypokinesis, ~40% EF; f/u official report - ECHO (11/19/18): LVEF 41% with mild-mod systolic dysfunction, diastolic dysfunction - BNP: 125 - home Coreg 3.125mg po BID - home Cozaar 25mg po daily - Cardio consulted: Dr. Liu - help appreciated COPD/Emphysema - Duonebs q6 ATC - Breo-Ellipta 1 puff daily - Spiriva 2 puffs daily - Pulmicort 0.5mg q12 - Pulm consulted: Dr. Schreiber - help appreciated Hyperlipidemia - Crestor 5mg po HS Recent Foot Surgery - Pod consulted: Dr. Nassar - help appreciated PPx - DVT: VTE CI due to surgery, bilateral SCDs - GI: not indicated at this time - HHD Case discussed with Dr. Ady Gabriel, PGY-1 <Eloina Garsia - Last Filed: 02/18/19 13:06> Objective - Vital Signs/Intake and Output Vital Signs (last 24 hours): Temp Pulse Resp BP Pulse Ox 98.3 F 79 20 135/86 97 02/17/19 23:30 02/17/19 23:30 02/17/19 23:30 02/17/19 23:30 02/17/19 23:30 Intake and Output: 02/18/19 02/18/19 06:59 18:59 Intake Total 555 Balance 555 - Medications Medications: Current Medications Acetaminophen (Tylenol 325mg Tab) 650 mg PO Q6 PRN PRN Reason: Pain, Mild (1-3) Albuterol Sulfate (Albuterol 0.083% Inhal Cristin (2.5 Mg/3 Ml) Ud) 2.5 mg INH ONCE PRN PRN Reason: Wheezing Last Admin: 02/17/19 11:02 Dose: 2.5 mg Albuterol/Ipratropium (Duoneb 3 Mg/0.5 Mg (3 Ml) Ud) 3 ml INH RQ6 [facility] Last Admin: 02/18/19 08:03 Dose: Not Given Budesonide (Pulmicort Respules) 0.5 mg INH RQ12 [facility] Carvedilol (Coreg) 3.125 mg PO BID [facility] Last Admin: 02/18/19 09:13 Dose: 3.125 mg Cyclobenzaprine HCl (Flexeril) 5 mg PO Q8H [facility] Last Admin: 02/18/19 08:39 Dose: 5 mg Fluticasone/Vilanterol (Breo Ellipta 200-25 Mcg Inh) 1 puff INH RQD [facility] Last Admin: 02/17/19 08:39 Dose: Not Given Heparin Sodium (Porcine) (Heparin) 5,000 units SC Q8 [facility] Lidocaine (Lidoderm) 1 ea TD DAILY [facility] Last Admin: 02/18/19 09:12 Dose: 1 ea Losartan Potassium (Cozaar) 25 mg PO DAILY [facility] Last Admin: 02/18/19 09:13 Dose: 25 mg Ondansetron HCl (Zofran Inj) 4 mg IVP Q6H PRN PRN Reason: Nausea/Vomiting Oxycodone HCl (Oxycodone Immediate Release Tab) 5 mg PO Q6 PRN PRN Reason: Pain, moderate (4-7) Last Admin: 02/18/19 04:14 Dose: 5 mg Rosuvastatin Calcium (Crestor) 5 mg PO HS [facility] Last Admin: 02/17/19 21:49 Dose: 5 mg Tiotropium [place] (Spiriva Inhalation Handihaler Device) 2 inhaler INH DAILY [facility] - Labs Labs: 02/18/19 06:23 02/18/19 06:23 PT 12.3 SECONDS (9.7-12.2) H 02/17/19 11:01 INR 1.1 02/17/19 11:01 APTT 37 SECONDS (21-34) H 02/17/19 11:01 Attending/Attestation - Attestation I have personally seen and examined this patient.: Yes I have fully participated in the care of the patient.: Yes I have reviewed all pertinent clinical information, including history, physical exam and plan: Yes Notes (Text): This is a patient with COPD and CHF admitted for incarcerated Hernia He underwent hernia repair by Robert Baeza. Spoke to Dr Baeza. patient tolerated the surgery under IV sedation and local anaesthesia. Patient was seen by Dr Liu before the procedure and stress test was recommended. Felipa didn't finish the test. he will be completing it tomorrow Continue his home meds follow eco report,follow sugery Assessment and the plan discussed with the resident
[2019-02-17] MEDS ORDERED: Albuterol 0.083% Inhal Sol (2.5 mg/3 mL) UD INH PRN (10:58)
--- NOTE | 2019-02-17 11:08 | CP.PCM.PN ---
Subjective - Date & Time of Evaluation Date of Evaluation: 02/17/19 Time of Evaluation: 11:04 - Subjective Subjective: Patient imterviewed and examined. Findings are that of a large tender incarcerated mass of the midepigastric are. Findings are most consistent with an incacerated possibly strangulated ventral hernia. This patient need urgent surger, and Ill even do this with local abesthesia and iv sedation. Objective - Vital Signs/Intake and Output Vital Signs (last 24 hours): Temp Pulse Resp BP Pulse Ox 97.9 F 81 20 135/78 96 02/17/19 08:08 02/17/19 08:08 02/17/19 08:08 02/17/19 08:08 02/17/19 08:08 Intake and Output: 02/17/19 02/17/19 06:59 18:59 Intake Total 450 Balance 450 - Medications Medications: Current Medications Albuterol Sulfate (Albuterol 0.083% Inhal Cristin (2.5 Mg/3 Ml) Ud) 2.5 mg INH ONCE PRN PRN Reason: Wheezing Last Admin: 02/17/19 11:02 Dose: 2.5 mg Albuterol/Ipratropium (Duoneb 3 Mg/0.5 Mg (3 Ml) Ud) 3 ml INH RQ6 [facility] Budesonide (Pulmicort Respules) 0.5 mg INH RQ12 [facility] Carvedilol (Coreg) 3.125 mg PO BID [facility] Last Admin: 02/17/19 09:52 Dose: Not Given Fluticasone/Vilanterol (Breo Ellipta 200-25 Mcg Inh) 1 puff INH RQD [facility] Last Admin: 02/17/19 08:39 Dose: Not Given Hydromorphone HCl (Dilaudid) 0.5 mg IVP Q5M PRN PRN Reason: Pain, moderate (4-7) Stop: 02/17/19 12:51 Piperacillin Sod/Tazobactam (Sod 3.375 gm/ Sodium Chloride) 100 mls @ 200 mls/hr IVPB Q8H [facility]; Protocol Last Admin: 02/17/19 04:55 Dose: 200 mls/hr Lactated Ringer's (Lactated Ringer's) 1,000 mls @ 75 mls/hr IV .[id number] [facility] Last Admin: 02/17/19 02:50 Dose: 75 mls/hr Losartan Potassium (Cozaar) 25 mg PO DAILY [facility] Last Admin: 02/17/19 09:51 Dose: Not Given Morphine Sulfate (Morphine) 1 mg IVP Q6 PRN PRN Reason: Pain, moderate (4-7) Morphine Sulfate (Morphine) 0.5 mg IVP Q6 PRN PRN Reason: Pain, Mild (1-3) Ondansetron HCl (Zofran Inj) 4 mg IVP Q6H PRN PRN Reason: Nausea/Vomiting Ondansetron HCl (Zofran Inj) 4 mg IVP ONCE PRN PRN Reason: Nausea/Vomiting Stop: 02/17/19 12:51 Rosuvastatin Calcium (Crestor) 5 mg PO HS [facility] Tiotropium [place] (Spiriva Inhalation Handihaler Device) 2 inhaler INH DAILY [facility] - Labs Labs: 02/16/19 21:31 02/16/19 21:31 PT 12.2 SECONDS (9.7-12.2) 02/16/19 21:31 INR 1.1 02/16/19 21:31 APTT 39 SECONDS (21-34) H 02/16/19 21:31
[2019-02-17 11:14] LABS: BASO # 0.1 K/uL (0.0-0.2); BASO % 0.8 % (0.0-2.0); EOS # 0.4 K/uL (0.0-0.7); LYMPH # 3.4 K/uL (1.0-4.3); LYMPH % 39.4 % (20.0-40.0); MEAN CORPUSCULAR HEMOGLOBIN 31.3 pg (27.0-31.0); MEAN CORPUSCULAR HGB CONC 33.7 g/dL (33.0-37.0); MEAN PLATELET VOLUME 8.9 fL (7.2-11.7); MONO # 0.8 K/uL (0.0-0.8); MONO % 9.2 % (0.0-10.0); NEUT % 45.6 % (50.0-75.0); RBC 4.78 Mil/uL (4.40-5.90); RED CELL DISTRIBUTION WIDTH 13.6 % (11.5-14.5); WHITE BLOOD COUNT 8.7 K/uL (4.8-10.8)
--- NOTE | 2019-02-17 11:24 | CP.PCM.PN ---
Subjective - Date & Time of Evaluation Date of Evaluation: 02/17/19 Time of Evaluation: 11:24 - Subjective Subjective: Progress note for Dr. Liu Objective - Vital Signs/Intake and Output Vital Signs (last 24 hours): Temp Pulse Resp BP Pulse Ox 97.9 F 81 20 135/78 96 02/17/19 08:08 02/17/19 08:08 02/17/19 08:08 02/17/19 08:08 02/17/19 08:08 Intake and Output: 02/17/19 02/17/19 06:59 18:59 Intake Total 450 Balance 450 - Medications Medications: Current Medications Albuterol Sulfate (Albuterol 0.083% Inhal Cristin (2.5 Mg/3 Ml) Ud) 2.5 mg INH ONCE PRN PRN Reason: Wheezing Last Admin: 02/17/19 11:02 Dose: 2.5 mg Albuterol/Ipratropium (Duoneb 3 Mg/0.5 Mg (3 Ml) Ud) 3 ml INH RQ6 [facility] Budesonide (Pulmicort Respules) 0.5 mg INH RQ12 [facility] Carvedilol (Coreg) 3.125 mg PO BID [facility] Last Admin: 02/17/19 09:52 Dose: Not Given Fluticasone/Vilanterol (Breo Ellipta 200-25 Mcg Inh) 1 puff INH RQD [facility] Last Admin: 02/17/19 08:39 Dose: Not Given Hydromorphone HCl (Dilaudid) 0.5 mg IVP Q5M PRN PRN Reason: Pain, moderate (4-7) Stop: 02/17/19 12:51 Piperacillin Sod/Tazobactam (Sod 3.375 gm/ Sodium Chloride) 100 mls @ 200 mls/hr IVPB Q8H [facility]; Protocol Last Admin: 02/17/19 04:55 Dose: 200 mls/hr Lactated Ringer's (Lactated Ringer's) 1,000 mls @ 75 mls/hr IV .[id number] [facility] Last Admin: 02/17/19 02:50 Dose: 75 mls/hr Losartan Potassium (Cozaar) 25 mg PO DAILY [facility] Last Admin: 02/17/19 09:51 Dose: Not Given Morphine Sulfate (Morphine) 1 mg IVP Q6 PRN PRN Reason: Pain, moderate (4-7) Morphine Sulfate (Morphine) 0.5 mg IVP Q6 PRN PRN Reason: Pain, Mild (1-3) Ondansetron HCl (Zofran Inj) 4 mg IVP Q6H PRN PRN Reason: Nausea/Vomiting Ondansetron HCl (Zofran Inj) 4 mg IVP ONCE PRN PRN Reason: Nausea/Vomiting Stop: 02/17/19 12:51 Rosuvastatin Calcium (Crestor) 5 mg PO HS [facility] Tiotropium [place] (Spiriva Inhalation Handihaler Device) 2 inhaler INH DAILY [facility] - Labs Labs: 02/17/19 11:01 02/16/19 21:31 PT 12.2 SECONDS (9.7-12.2) 02/16/19 21:31 INR 1.1 02/16/19 21:31 APTT 39 SECONDS (21-34) H 02/16/19 21:31
[2019-02-17] MEDS ORDERED: Bupivacaine-Epi 0.5%-1:200,000 PF Inj ONE (11:25)
[2019-02-17 11:28] LABS: ALB/GLOB RATIO 1.4 (1.0-2.1); ALBUMIN 4.3 g/dL (3.5-5.0); CALCIUM 9.2 mg/dl (8.6-10.4)
[2019-02-17 11:29] LABS: INR 1.1; PROTHROMBIN TIME 12.3 SECONDS (9.7-12.2)
[2019-02-17] MEDS ORDERED: Lidocaine 2% MPF (5 ml) Inj ONE (11:44)
[2019-02-17] MEDS ORDERED: Bupivacaine Liposomal Inj 20 ml INJ ONE (12:00)
--- NOTE | 2019-02-17 12:27 | CT ---
Date of service: 02/16/2019 PROCEDURE: CT Abdomen and Pelvis with contrast HISTORY: abd pain , incarcerated hernia COMPARISON: None available. TECHNIQUE: Contrast dose: 100 mL Visipaque 320 IV Radiation dose: Total exam DLP = 1156.32 mGy-cm. This CT exam was performed using one or more of the following dose reduction techniques: Automated exposure control, adjustment of the mA and/or kV according to patient size, and/or use of iterative reconstruction technique. FINDINGS: LOWER THORAX: No visible consolidation, pleural effusion, or pneumothorax. Small to moderate hiatal hernia/distal esophageal wall thickening. LIVER: Hypoattenuation of the liver compatible with hepatic steatosis. GALLBLADDER AND BILE DUCTS: Unremarkable. PANCREAS: Unremarkable. SPLEEN: Unremarkable. ADRENALS: Unremarkable. KIDNEYS AND URETERS: The kidneys enhance symmetrically. No hydronephrosis or obstructing calculus identified. Too small to characterize 9 mm right lower pole renal hypodensity; statistically likely cyst. VASCULATURE: No aortic aneurysm. Mild atherosclerotic calcifications of the aorta. BOWEL: Stomach is nondistended. Lack of oral contrast limits evaluation for bowel pathology. Bowel loops appear within normal limits of caliber without evidence of obstruction. APPENDIX: No secondary signs of acute appendicitis. PERITONEUM: No significant free fluid. No definite free air. LYMPH NODES: No bulky adenopathy identified. BLADDER: Unremarkable. REPRODUCTIVE: Unremarkable. BONES: Mild degenerative changes. OTHER FINDINGS: 2.3 cm fat containing ventral hernia. Small bilateral fat containing inguinal hernias. IMPRESSION: Fat containing ventral hernia. Hypoattenuation of the liver compatible with hepatic steatosis. Too small to characterize 9 mm right lower pole renal hypodensity; statistically likely cyst. Small [id number]-[id number]-tela-right fat containing inguinal hernias. Additional findings as above. Preliminary impression was provided by [employer].
--- NOTE | 2019-02-17 12:37 | PCM.SURG1 ---
Surgeon's Initial Post Op Note - Surgeon's Notes Surgeon: Dr. Baeza Store Worker: Rios PGY2 Type of Anesthesia: IV Sedation, Local Anesthesia Administered By: Dr. Peterson Pre-Operative Diagnosis: Incarcerated ventral hernia Operative Findings: Incarcerated ventral hernia Post-Operative Diagnosis: Incarcerated ventral hernia Operation Performed: Primary repair of Incarcerated ventral hernia Specimen/Specimens Removed: hernia sack Estimated Blood Loss: EBL {In ML}: 20 Blood Products Given: N/A Drains Used: No Drains Post-Op Condition: Good Date of Surgery/Procedure: 02/17/19 Time of Surgery/Procedure: 12:36
--- NOTE | 2019-02-17 12:37 | PCM.OP ---
Operative Report - Operative Report Date of Surgery/Procedure: 02/17/19 Time of Surgery/Procedure: 12:30 Surgeon: Dr. Baeza Supervisor [employer]: Rios LEVY Anesthesia/Sedation: IV sedation and Local Dr. Peterson Pre-Operative Diagnosis: Incarcerated Ventral hernia Post-Operative Diagnosis: Incarcerated Ventral hernia Indication for Surgery: Incarcerated Ventral hernia Operative Findings: Incarcerated epigastric Ventral hernia, omentum containing hernia Estimated Blood Loss: 20 cc Complications: None Discharge & Condition: Good, patient to be transferred back to [facility] floor after PACU.
--- NOTE | 2019-02-17 14:49 | CP.PCM.CON ---
<Anali Urena - Last Filed: 02/17/19 16:46> History of Present Illness - History of Present Illness History of Present Illness: Consult note for Dr. Liu Patient is a 68 year male with a past medical history of CHF, COPD, HLD, and CAD, who presented to the hospital with abdominal pain. He was found to have an incarcerated ventral hernia; thus cardiology was consulted for cardiac cleara nce. The patient has no complaints and feels well. He is s/p hernia repair and currently denies chest pain, palpitations, dyspnea, dizziness, changes in vision, n/v, fevers, headaches, leg pain. PMD: Dr. Gamino PMHx: COPD, HLD (per EMR, CHF and CAD, but patient denies history of heart disease) SurgHx: right knee surgery, right cataract surgery 4 years ago, foot surgery FamHx: denies SocHx: former smoker, quit 16 years ago (30+pack yr); drinks 1 bottle of vodka per week; denies drug use. Allergies: NKDA Meds: Symbicort, Spiriva, and "a cholesterol medicine" Review of Systems - Constitutional Constitutional: absent: Chills, Fever, Headache - EENT Eyes: absent: Change in Vision Ears: absent: Dizziness - Cardiovascular Cardiovascular: absent: Chest Pain, Dyspnea, Edema, Lightheadedness, Palpitations - Respiratory Respiratory: absent: Cough, Dyspnea - Gastrointestinal Gastrointestinal: Abdominal Pain. absent: Nausea, Vomiting - Neurological Neurological: absent: Dizziness, Headaches, Loss of Vision Past Patient History - Infectious Disease Hx of Infectious Diseases: None - Past Medical History & Family History Past Medical History?: Yes - Past Social History Smoking Status: Former Smoker Alcohol: Social Drugs: Denies - CARDIAC Hx Hypercholesterolemia: Yes - PULMONARY Hx Asthma: Yes Hx Emphysema: Yes - NEUROLOGICAL Hx Neurological Disorder: No - HEENT Hx HEENT Problems: Yes Other/Comment: Right eye cataract- surgery - RENAL Hx Chronic Kidney Disease: No - ENDOCRINE/METABOLIC Hx Endocrine Disorders: No - HEMATOLOGICAL/ONCOLOGICAL Hx Blood Disorders: No - INTEGUMENTARY Hx Dermatological Problems: No - MUSCULOSKELETAL/RHEUMATOLOGICAL Hx Musculoskeletal Disorders: Yes Hx Falls: No Other/Comment: right knee surgery states over 10 years ago, states orginal problem has been resolved - GASTROINTESTINAL Hx Gastrointestinal Disorders: No - GENITOURINARY/GYNECOLOGICAL Hx Genitourinary Disorders: No - PSYCHIATRIC Hx Substance Use: No - SURGICAL HISTORY Hx Appendectomy: Yes - ANESTHESIA Hx Anesthesia: Yes Hx Anesthesia Reactions: No Hx Malignant Hyperthermia: No Meds Allergies/Adverse Reactions: Allergies Allergy/AdvReac Type Severity Reaction Status Date / Time No Known Allergies Allergy Verified 02/16/19 20:02 - Medications Medications: Current Medications Albuterol Sulfate (Albuterol 0.083% Inhal Cristin (2.5 Mg/3 Ml) Ud) 2.5 mg INH ONCE PRN PRN Reason: Wheezing Last Admin: 02/17/19 11:02 Dose: 2.5 mg Albuterol/Ipratropium (Duoneb 3 Mg/0.5 Mg (3 Ml) Ud) 3 ml INH RQ6 [facility] Budesonide (Pulmicort Respules) 0.5 mg INH RQ12 [facility] Carvedilol (Coreg) 3.125 mg PO BID [facility] Last Admin: 02/17/19 09:52 Dose: Not Given Fluticasone/Vilanterol (Breo Ellipta 200-25 Mcg Inh) 1 puff INH RQD [facility] Last Admin: 02/17/19 08:39 Dose: Not Given Piperacillin Sod/Tazobactam (Sod 3.375 gm/ Sodium Chloride) 100 mls @ 200 mls/hr IVPB Q8H [facility]; Protocol Last Admin: 02/17/19 12:03 Dose: Not Given Lactated Ringer's (Lactated Ringer's) 1,000 mls @ 75 mls/hr IV .[id number] [facility] Last Admin: 02/17/19 02:50 Dose: 75 mls/hr Losartan Potassium (Cozaar) 25 mg PO DAILY [facility] Last Admin: 02/17/19 09:51 Dose: Not Given Morphine Sulfate (Morphine) 1 mg IVP Q6 PRN PRN Reason: Pain, moderate (4-7) Morphine Sulfate (Morphine) 0.5 mg IVP Q6 PRN PRN Reason: Pain, Mild (1-3) Ondansetron HCl (Zofran Inj) 4 mg IVP Q6H PRN PRN Reason: Nausea/Vomiting Rosuvastatin Calcium (Crestor) 5 mg PO HS [facility] Tiotropium [place] (Spiriva Inhalation Handihaler Device) 2 inhaler INH DAILY [facility] Physical Exam - Constitutional Appears: Well, No Acute Distress - Head Exam Head Exam: ATRAUMATIC, NORMAL INSPECTION - Eye Exam Eye Exam: EOMI - ENT Exam ENT Exam: Mucous Membranes Moist - Respiratory Exam Respiratory Exam: Clear to Auscultation Bilateral, NORMAL BREATHING PATTERN. absent: Rales, Rhonchi, Wheezes - Cardiovascular Exam Cardiovascular Exam: REGULAR RHYTHM, +S1, +S2 - GI/Abdominal Exam GI & Abdominal Exam: Normal Bowel Sounds Additional comments: s/p hernia repair; binder in place - Extremities Exam Extremities exam: Positive for: normal inspection, pedal pulses present. Negative for: pedal edema, tenderness - Neurological Exam Neurological exam: Alert, Oriented x3 - Psychiatric Exam Psychiatric exam: Normal Affect, Normal Mood - Skin Skin Exam: Dry, Normal Color, Warm Results - Vital Signs Recent Vital Signs: Last Vital Signs Temp 98 F 02/17/19 13:30 Pulse 69 02/17/19 13:30 Resp 10 L 02/17/19 13:30 BP 102/55 L 02/17/19 13:30 Pulse Ox 96 02/17/19 13:30 - Labs Result Diagrams: 02/17/19 11:01 02/17/19 11:01 Labs: Laboratory Results - last 24 hr 02/16/19 02/16/19 02/16/19 21:25 21:31 21:31 WBC 8.4 RBC 4.74 Hgb 14.6 Hct 43.7 MCV 92.2 MCH 30.7 MCHC 33.3 RDW 13.6 Plt Count 246 MPV 8.6 Neut % (Auto) 43.2 L Lymph % (Auto) 37.3 [place] % (Auto) 12.6 H Eos % (Auto) 5.7 H Baso % (Auto) 1.2 Neut # (Auto) 3.6 Lymph # (Auto) 3.1 [place] # (Auto) 1.1 H Eos # (Auto) 0.5 Baso # (Auto) 0.1 PT 12.2 INR 1.1 APTT 39 H Puncture Site pCO2 pO2 46 HCO3 ABG pH ABG Total CO2 ABG O2 Saturation ABG Base Excess ABG Hemoglobin ABG Carboxyhemoglobin POC ABG HHb (Measured) ABG Methemoglobin Prasanth Test VBG pH 7.41 VBG pCO2 32 L VBG HCO3 21.9 VBG Total CO2 21.3 L VBG O2 Sat (Calc) 87.7 H VBG Base Excess -3.4 L VBG Potassium 2.6 L Hgb O2 Saturation Sodium 146.0 Chloride 115.0 H Glucose 61 L Lactate 1.3 Liter Flow Potassium Carbon Dioxide Anion Gap BUN Creatinine Est GFR ( Amer) Est GFR (Non-Af Amer) Random Glucose Calcium Phosphorus Magnesium Total Bilirubin AST ALT Alkaline Phosphatase NT-Pro-B Natriuret Pep Total Protein Albumin Globulin Albumin/Globulin Ratio Lipase Venous Blood Potassium 2.6 L Urine Color Urine Clarity Urine pH Ur Specific Vista Urine Protein Urine Glucose (UA) Urine Ketones Urine Blood Urine Nitrate Urine Bilirubin Urine Urobilinogen Ur Leukocyte Esterase Urine WBC (Auto) Urine RBC (Auto) Ur Squamous Epith Cells Blood Type Antibody Screen 02/16/19 02/16/19 02/17/19 21:31 22:34 10:32 WBC RBC Hgb Hct MCV MCH MCHC RDW Plt Count MPV Neut % (Auto) Lymph % (Auto) [place] % (Auto) Eos % (Auto) Baso % (Auto) Neut # (Auto) Lymph # (Auto) [place] # (Auto) Eos # (Auto) Baso # (Auto) PT INR APTT Puncture Site Rrad pCO2 35 pO2 171 H HCO3 26.0 ABG pH 7.46 H ABG Total CO2 26.0 ABG O2 Saturation 99.9 H ABG Base Excess 1.4 ABG Hemoglobin 14.1 ABG Carboxyhemoglobin 1.8 H POC ABG HHb (Measured) 0.1 ABG Methemoglobin 1.4 Prasanth Test Pos VBG pH VBG pCO2 VBG HCO3 VBG Total CO2 VBG O2 Sat (Calc) VBG Base Excess VBG Potassium Hgb O2 Saturation 96.8 Sodium 141 Chloride 101 Glucose Lactate Liter Flow 6.0 Potassium 4.5 Carbon Dioxide 30 Anion Gap 14 BUN 17 Creatinine 1.3 Est GFR ( Amer) > 60 Est GFR (Non-Af Amer) 55 Random Glucose 88 Calcium 9.6 Phosphorus Magnesium Total Bilirubin 0.4 AST 33 ALT 32 Alkaline Phosphatase 66 NT-Pro-B Natriuret Pep Total Protein 7.6 Albumin 4.4 Globulin 3.2 Albumin/Globulin Ratio 1.4 Lipase 111 Venous Blood Potassium Urine Color Yellow Urine Clarity Clear Urine pH 6.0 Ur Specific Vista 1.016 Urine Protein Negative Urine Glucose (UA) Normal Urine Ketones Negative Urine Blood Negative Urine Nitrate Negative Urine Bilirubin Negative Urine Urobilinogen Normal Ur Leukocyte Esterase Neg Urine WBC (Auto) 1 Urine RBC (Auto) 2 Ur Squamous Epith Cells < 1 Blood Type Antibody Screen 02/17/19 02/17/19 02/17/19 11:01 11:01 11:01 WBC 8.7 RBC 4.78 Hgb 15.0 Hct 44.5 MCV 93.0 MCH 31.3 H MCHC 33.7 RDW 13.6 Plt Count 236 MPV 8.9 Neut % (Auto) 45.6 L Lymph % (Auto) 39.4 Hudspeth % (Auto) 9.2 Eos % (Auto) 5.0 H Baso % (Auto) 0.8 Neut # (Auto) 4.0 Lymph # (Auto) 3.4 [place]eth # (Auto) 0.8 Eos # (Auto) 0.4 Baso # (Auto) 0.1 PT 12.3 H INR 1.1 APTT 37 H Puncture Site pCO2 pO2 HCO3 ABG pH ABG Total CO2 ABG O2 Saturation ABG Base Excess ABG Hemoglobin ABG Carboxyhemoglobin POC ABG HHb (Measured) ABG Methemoglobin Prasanth Test VBG pH VBG pCO2 VBG HCO3 VBG Total CO2 VBG O2 Sat (Calc) VBG Base Excess VBG Potassium Hgb O2 Saturation Sodium 140 Chloride 102 Glucose Lactate Liter Flow Potassium 3.9 Carbon Dioxide 30 Anion Gap 13 BUN 16 Creatinine 1.5 Est GFR ( Amer) 56 Est GFR (Non-Af Amer) 46 Random Glucose 90 Calcium 9.2 Phosphorus 4.3 Magnesium 2.1 Total Bilirubin 0.9 AST 30 ALT 36 Alkaline Phosphatase 71 NT-Pro-B Natriuret Pep 125 Total Protein 7.3 Albumin 4.3 Globulin 3.0 Albumin/Globulin Ratio 1.4 Lipase Venous Blood Potassium Urine Color Urine Clarity Urine pH Ur Specific Vista Urine Protein Urine Glucose (UA) Urine Ketones Urine Blood Urine Nitrate Urine Bilirubin Urine Urobilinogen Ur Leukocyte Esterase Urine WBC (Auto) Urine RBC (Auto) Ur Squamous Epith Cells Blood Type Antibody Screen 02/17/19 11:01 WBC RBC Hgb Hct MCV MCH MCHC RDW Plt Count MPV Neut % (Auto) Lymph % (Auto) [place] % (Auto) Eos % (Auto) Baso % (Auto) Neut # (Auto) Lymph # (Auto) [place] # (Auto) Eos # (Auto) Baso # (Auto) PT INR APTT Puncture Site pCO2 pO2 HCO3 ABG pH ABG Total CO2 ABG O2 Saturation ABG Base Excess ABG Hemoglobin ABG Carboxyhemoglobin POC ABG HHb (Measured) ABG Methemoglobin Prasanth Test VBG pH VBG pCO2 VBG HCO3 VBG Total CO2 VBG O2 Sat (Calc) VBG Base Excess VBG Potassium Hgb O2 Saturation Sodium Chloride Glucose Lactate Liter Flow Potassium Carbon Dioxide Anion Gap BUN Creatinine Est GFR ( Amer) Est GFR (Non-Af Amer) Random Glucose Calcium Phosphorus Magnesium Total Bilirubin AST ALT Alkaline Phosphatase NT-Pro-B Natriuret Pep Total Protein Albumin Globulin Albumin/Globulin Ratio Lipase Venous Blood Potassium Urine Color Urine Clarity Urine pH Ur Specific Vista Urine Protein Urine Glucose (UA) Urine Ketones Urine Blood Urine Nitrate Urine Bilirubin Urine Urobilinogen Ur Leukocyte Esterase Urine WBC (Auto) Urine RBC (Auto) Ur Squamous Epith Cells Blood Type A POSITIVE Antibody Screen Negative Assessment & Plan - Assessment and Plan (Free Text) Plan: 68 year old male with a history of COPD, CHF, CAD, and HLD, who presented with abdominal pain and was admitted for incarcerated hernia repair. Cardiology was consulted for cardiac clearance; however, surgery team performed repair under local anesthesia. Cardiac clearance for surgery - Stress test ordered: incomplete test as patient was taken to OR before finishing stress test; apical defect; f/u official report; recommended f/u resting imaging tomorrow. - ECHO: apical hypokinesis, ~40% EF; f/u official report - Echo (11/2018): EF 41% w/mild to mod systolic dysfunction and diastolic dysfunction CHF - Continue Coreg 3.125mg PO BID, Cozaar 25mg PO daily HLD - Continue Crestor 5mg PO HS Case discussed with Dr. Noe Andrew, PGY2 <Harris Liu - Last Filed: 02/18/19 05:39> Meds - Medications Medications: Current Medications Acetaminophen (Tylenol 325mg Tab) 650 mg PO Q6 PRN PRN Reason: Pain, Mild (1-3) Albuterol Sulfate (Albuterol 0.083% Inhal Cristin (2.5 Mg/3 Ml) Ud) 2.5 mg INH ONCE PRN PRN Reason: Wheezing Last Admin: 02/17/19 11:02 Dose: 2.5 mg Albuterol/Ipratropium (Duoneb 3 Mg/0.5 Mg (3 Ml) Ud) 3 ml INH RQ6 [facility] Last Admin: 02/18/19 01:27 Dose: 3 ml Budesonide (Pulmicort Respules) 0.5 mg INH RQ12 [facility] Carvedilol (Coreg) 3.125 mg PO BID [facility] Last Admin: 02/17/19 17:50 Dose: 3.125 mg Cyclobenzaprine HCl (Flexeril) 5 mg PO Q8H [facility] Last Admin: 02/18/19 00:17 Dose: 5 mg Fluticasone/Vilanterol (Breo Ellipta 200-25 Mcg Inh) 1 puff INH RQD [facility] Last Admin: 02/17/19 08:39 Dose: Not Given Lidocaine (Lidoderm) 1 ea TD DAILY [facility] Losartan Potassium (Cozaar) 25 mg PO DAILY [facility] Last Admin: 02/17/19 09:51 Dose: Not Given Ondansetron HCl (Zofran Inj) 4 mg IVP Q6H PRN PRN Reason: Nausea/Vomiting Oxycodone HCl (Oxycodone Immediate Release Tab) 5 mg PO Q6 PRN PRN Reason: Pain, moderate (4-7) Last Admin: 02/18/19 04:14 Dose: 5 mg Rosuvastatin Calcium (Crestor) 5 mg PO HS [facility] Last Admin: 02/17/19 21:49 Dose: 5 mg Tiotropium [place] (Spiriva Inhalation Handihaler Device) 2 inhaler INH DAILY [facility] Results - Vital Signs Recent Vital Signs: Last Vital Signs Temp 98.3 F 02/17/19 23:30 Pulse 79 02/17/19 23:30 Resp 20 02/17/19 23:30 BP 135/86 02/17/19 23:30 Pulse Ox 97 02/17/19 23:30 - Labs Result Diagrams: 02/17/19 11:01 02/17/19 11:01 Labs: Laboratory Results - last 24 hr 02/17/19 02/17/19 02/17/19 10:32 11:01 11:01 WBC 8.7 RBC 4.78 Hgb 15.0 Hct 44.5 MCV 93.0 MCH 31.3 H MCHC 33.7 RDW 13.6 Plt Count 236 MPV 8.9 Neut % (Auto) 45.6 L Lymph % (Auto) 39.4 [place] % (Auto) 9.2 Eos % (Auto) 5.0 H Baso % (Auto) 0.8 Neut # (Auto) 4.0 Lymph # (Auto) 3.4 [place] # (Auto) 0.8 Eos # (Auto) 0.4 Baso # (Auto) 0.1 PT 12.3 H INR 1.1 APTT 37 H Puncture Site Rrad pCO2 35 pO2 171 H HCO3 26.0 ABG pH 7.46 H ABG Total CO2 26.0 ABG O2 Saturation 99.9 H ABG Base Excess 1.4 ABG Hemoglobin 14.1 ABG Carboxyhemoglobin 1.8 H POC ABG HHb (Measured) 0.1 ABG Methemoglobin 1.4 Prasanth Test Pos Hgb O2 Saturation 96.8 Liter Flow 6.0 Sodium Potassium Chloride Carbon Dioxide Anion Gap BUN Creatinine Est GFR ( Amer) Est GFR (Non-Af Amer) Random Glucose Calcium Phosphorus Magnesium Total Bilirubin AST ALT Alkaline Phosphatase NT-Pro-B Natriuret Pep Total Protein Albumin Globulin Albumin/Globulin Ratio Blood Type Antibody Screen 02/17/19 02/17/19 11:01 11:01 WBC RBC Hgb Hct MCV MCH MCHC RDW Plt Count MPV Neut % (Auto) Lymph % (Auto) [place] % (Auto) Eos % (Auto) Baso % (Auto) Neut # (Auto) Lymph # (Auto) [place] # (Auto) Eos # (Auto) Baso # (Auto) PT INR APTT Puncture Site pCO2 pO2 HCO3 ABG pH ABG Total CO2 ABG O2 Saturation ABG Base Excess ABG Hemoglobin ABG Carboxyhemoglobin POC ABG HHb (Measured) ABG Methemoglobin Prasanth Test Hgb O2 Saturation Liter Flow Sodium 140 Potassium 3.9 Chloride 102 Carbon Dioxide 30 Anion Gap 13 BUN 16 Creatinine 1.5 Est GFR ( Amer) 56 Est GFR (Non-Af Amer) 46 Random Glucose 90 Calcium 9.2 Phosphorus 4.3 Magnesium 2.1 Total Bilirubin 0.9 AST 30 ALT 36 Alkaline Phosphatase 71 NT-Pro-B Natriuret Pep 125 Total Protein 7.3 Albumin 4.3 Globulin 3.0 Albumin/Globulin Ratio 1.4 Blood Type A POSITIVE Antibody Screen Negative Assessment & Plan - Assessment and Plan (Free Text) Plan: Patient seen and personally evaluated by me. Plan of care d/w the medical management specialist and as documented
--- NOTE | 2019-02-17 15:50 | CARD ---
APPROVED REPORT Date of service: 02/17/2019 EXAM: Two-dimensional and M-mode echocardiogram with Doppler and color Doppler. Other Information Quality : TDSRhythm : INDICATION Pre-Op Congestive Heart Failure RISK FACTORS Hyperlipidemia 2D DIMENSIONS IVSd1.2 (0.7-1.1cm)LVDd5.2 (3.9-5.9cm) PWd1.1 (0.7-1.1cm)LA Qscplj10 (18-58mL) LVDs4.0 (2.5-4.0cm)FS (%) 22.7 % LVEF (%)45.4 (>50%)LVEF (Emmanuel's)39.08 % IVC0.00 cm M-Mode DIMENSIONS RVDd2.15 (2.1-3.2cm)Left Atrium (MM)3.83 (2.5-4.0cm) IVSd0.98 (0.7-1.1cm)Aortic Root3.01 (2.2-3.7cm) LVDd5.97 (4.0-5.6cm)Aortic Cusp Exc.2.30 (1.5-2.0cm) PWd0.82 (0.7-1.1cm)FS (%) 21 % LVDs4.72 (2.0-3.8cm)LVEF (%)42 (>50%) Mitral Valve MV E Swftyqma40.8cm/sMV A Pxftmupe207.2cm/sE/A ratio0.4 ZDQO320.57 cm/s TDI Lateral E' Peak V6.87cm/sMedial E' Peak V6.55cm/sE/Lateral E'6.8 E/Medial E'7.1 Tricuspid Valve TR Peak [id number]/sTR Peak Gr.[id number] LEFT VENTRICLE The Left Ventricle is mildly dilated. There is normal left ventricular wall thickness. Left ventricle systolic function is moderately impaired. The Ejection Fraction is 40-45%. There is global hypokinesis of the left ventricle with the septal motion suggestive of conduction abnormality. Transmitral Doppler flow pattern is Grade I-abnormal relaxation pattern. Normal left atrial pressure by Tissue Doppler RIGHT VENTRICLE The right ventricle is normal size. The right ventricular systolic function is normal. ATRIA The left atrium size is normal. The right atrium size is normal. AORTIC VALVE The aortic valve is normal in structure. No aortic regurgitation is present. There is no aortic valvular stenosis. MITRAL VALVE The mitral valve is normal in structure. Mitral regurgitation is mild. TRICUSPID VALVE The tricuspid valve is normal in structure. There is trace tricuspid regurgitation. PULMONIC VALVE The pulmonic valve is not well visualized. GREAT VESSELS The aortic root is normal in size. The IVC is normal in size. PERICARDIAL EFFUSION A fad pad noted. A loculated anterior effusion can not be excluded. <Conclusion> The left ventricle is mildly dilated. There is global hypokinesis of the left ventricle with the septal motion suggestive of conduction abnormality. Left ventricle systolic function is moderately impaired. The Ejection Fraction is 40-45%. Grade I diastolic dysfunction - abnormal relaxation pattern. Normal left atrial pressure by Tissue Doppler The right ventricular systolic function is normal. Mild mitral regurgitation. A pericardial fad pad noted. A loculated anterior effusion can not be excluded.
--- NOTE | 2019-02-17 16:26 | CP.PCM.CON ---
History of Present Illness - History of Present Illness History of Present Illness: Podiatry Consult Note for Dr. Nassar 68M seen and evaluated at bedside for chronic right foot first metatarsal fracture. Patient had previous surgery with Dr. Nassar at a surgical center on 01/29. States that he continues to have pain in his right foot, especially when walking. Denies any pain medications or other forms of treatment at this time. Patient is AAO x 3 and NAD, resting comfortably in bed. Denies any further pedal complaints. Denies any recent N/V/F/C/CP/SOB/D. States that his is in house for a hernia surgery Review of Systems - Review of Systems All systems: reviewed and no additional remarkable complaints except Review of Systems: as per HPI Past Patient History - Infectious Disease Hx of Infectious Diseases: None - Past Medical History & Family History Past Medical History?: Yes - Past Social History Smoking Status: Former Smoker Alcohol: Social Drugs: Denies - CARDIAC Hx Hypercholesterolemia: Yes - PULMONARY Hx Asthma: Yes Hx Emphysema: Yes - NEUROLOGICAL Hx Neurological Disorder: No - HEENT Hx HEENT Problems: Yes Other/Comment: Right eye cataract- surgery - RENAL Hx Chronic Kidney Disease: No - ENDOCRINE/METABOLIC Hx Endocrine Disorders: No - HEMATOLOGICAL/ONCOLOGICAL Hx Blood Disorders: No - INTEGUMENTARY Hx Dermatological Problems: No - MUSCULOSKELETAL/RHEUMATOLOGICAL Hx Musculoskeletal Disorders: Yes Hx Falls: No Other/Comment: right knee surgery states over 10 years ago, states orginal problem has been resolved - GASTROINTESTINAL Hx Gastrointestinal Disorders: No - GENITOURINARY/GYNECOLOGICAL Hx Genitourinary Disorders: No - PSYCHIATRIC Hx Substance Use: No - SURGICAL HISTORY Hx Appendectomy: Yes - ANESTHESIA Hx Anesthesia: Yes Hx Anesthesia Reactions: No Hx Malignant Hyperthermia: No Meds Allergies/Adverse Reactions: Allergies Allergy/AdvReac Type Severity Reaction Status Date / Time No Known Allergies Allergy Verified 02/16/19 20:02 - Medications Medications: Current Medications Acetaminophen (Tylenol 325mg Tab) 650 mg PO Q6 PRN PRN Reason: Pain, Mild (1-3) Albuterol Sulfate (Albuterol 0.083% Inhal Cristin (2.5 Mg/3 Ml) Ud) 2.5 mg INH ONCE PRN PRN Reason: Wheezing Last Admin: 02/17/19 11:02 Dose: 2.5 mg Albuterol/Ipratropium (Duoneb 3 Mg/0.5 Mg (3 Ml) Ud) 3 ml INH RQ6 [facility] Budesonide (Pulmicort Respules) 0.5 mg INH RQ12 [facility] Carvedilol (Coreg) 3.125 mg PO BID [facility] Last Admin: 02/17/19 09:52 Dose: Not Given Cyclobenzaprine HCl (Flexeril) 5 mg PO Q8H [facility] Fluticasone/Vilanterol (Breo Ellipta 200-25 Mcg Inh) 1 puff INH RQD [facility] Last Admin: 02/17/19 08:39 Dose: Not Given Lidocaine (Lidoderm) 1 ea TD DAILY [facility] Losartan Potassium (Cozaar) 25 mg PO DAILY [facility] Last Admin: 02/17/19 09:51 Dose: Not Given Ondansetron HCl (Zofran Inj) 4 mg IVP Q6H PRN PRN Reason: Nausea/Vomiting Oxycodone HCl (Oxycodone Immediate Release Tab) 5 mg PO Q6 PRN PRN Reason: Pain, moderate (4-7) Rosuvastatin Calcium (Crestor) 5 mg PO HS [facility] Tiotropium [place] (Spiriva Inhalation Handihaler Device) 2 inhaler INH DAILY [facility] Physical Exam - Constitutional Appears: Well, Non-toxic, No Acute Distress - Extremities Exam Additional comments: RLE focused exam: Vasc: DP/PT pulses palpable 2/4. Skin temperature warm to warm from proximal to distal WNL. No edema noted b/l. CFT < 3 seconds to all digits Neuro: Epicritic and protective sensation grossly intact b/l Derm: No open lesions, wounds, maceration, xerosis, abnormal pigmentation or abnormal growths noted. Single, monocryl suture noted over first metatarsal and at lateral heel with adequately healed tissue surrounding. No evidence of inf ection or skin irritation appreciated MSK: Pain on palpation of first metatarsal shaft. No gross deformities noted. ROM at all major joints WNL and MMT 5/5 in all major muscle groups - Neurological Exam Neurological exam: Alert, Oriented x3 - Psychiatric Exam Psychiatric exam: Normal Affect, Normal Mood Results - Vital Signs Recent Vital Signs: Last Vital Signs Temp 97.7 F 02/17/19 15:41 Pulse 70 02/17/19 15:41 Resp 18 02/17/19 15:41 BP 110/68 02/17/19 15:41 Pulse Ox 98 02/17/19 15:41 - Labs Result Diagrams: 02/17/19 11:01 02/17/19 11:01 Labs: Laboratory Results - last 24 hr 02/16/19 02/16/19 02/16/19 21:25 21:31 21:31 WBC 8.4 RBC 4.74 Hgb 14.6 Hct 43.7 MCV 92.2 MCH 30.7 MCHC 33.3 RDW 13.6 Plt Count 246 MPV 8.6 Neut % (Auto) 43.2 L Lymph % (Auto) 37.3 [place] % (Auto) 12.6 H Eos % (Auto) 5.7 H Baso % (Auto) 1.2 Neut # (Auto) 3.6 Lymph # (Auto) 3.1 [place] # (Auto) 1.1 H Eos # (Auto) 0.5 Baso # (Auto) 0.1 PT 12.2 INR 1.1 APTT 39 H Puncture Site pCO2 pO2 46 HCO3 ABG pH ABG Total CO2 ABG O2 Saturation ABG Base Excess ABG Hemoglobin ABG Carboxyhemoglobin POC ABG HHb (Measured) ABG Methemoglobin Prasanth Test VBG pH 7.41 VBG pCO2 32 L VBG HCO3 21.9 VBG Total CO2 21.3 L VBG O2 Sat (Calc) 87.7 H VBG Base Excess -3.4 L VBG Potassium 2.6 L Hgb O2 Saturation Sodium 146.0 Chloride 115.0 H Glucose 61 L Lactate 1.3 Liter Flow Potassium Carbon Dioxide Anion Gap BUN Creatinine Est GFR ( Amer) Est GFR (Non-Af Amer) Random Glucose Calcium Phosphorus Magnesium Total Bilirubin AST ALT Alkaline Phosphatase NT-Pro-B Natriuret Pep Total Protein Albumin Globulin Albumin/Globulin Ratio Lipase Venous Blood Potassium 2.6 L Urine Color Urine Clarity Urine pH Ur Specific [place] Urine Protein Urine Glucose (UA) Urine Ketones Urine Blood Urine Nitrate Urine Bilirubin Urine Urobilinogen Ur Leukocyte Esterase Urine WBC (Auto) Urine RBC (Auto) Ur Squamous Epith Cells Blood Type Antibody Screen 02/16/19 02/16/19 02/17/19 21:31 22:34 10:32 WBC RBC Hgb Hct MCV MCH MCHC RDW Plt Count MPV Neut % (Auto) Lymph % (Auto) [place] % (Auto) Eos % (Auto) Baso % (Auto) Neut # (Auto) Lymph # (Auto) [place] # (Auto) Eos # (Auto) Baso # (Auto) PT INR APTT Puncture Site Rrad pCO2 35 pO2 171 H HCO3 26.0 ABG pH 7.46 H ABG Total CO2 26.0 ABG O2 Saturation 99.9 H ABG Base Excess 1.4 ABG Hemoglobin 14.1 ABG Carboxyhemoglobin 1.8 H POC ABG HHb (Measured) 0.1 ABG Methemoglobin 1.4 Prasanth Test Pos VBG pH VBG pCO2 VBG HCO3 VBG Total CO2 VBG O2 Sat (Calc) VBG Base Excess VBG Potassium Hgb O2 Saturation 96.8 Sodium 141 Chloride 101 Glucose Lactate Liter Flow 6.0 Potassium 4.5 Carbon Dioxide 30 Anion Gap 14 BUN 17 Creatinine 1.3 Est GFR ( Amer) > 60 Est GFR (Non-Af Amer) 55 Random Glucose 88 Calcium 9.6 Phosphorus Magnesium Total Bilirubin 0.4 AST 33 ALT 32 Alkaline Phosphatase 66 NT-Pro-B Natriuret Pep Total Protein 7.6 Albumin 4.4 Globulin 3.2 Albumin/Globulin Ratio 1.4 Lipase 111 Venous Blood Potassium Urine Color Yellow Urine Clarity Clear Urine pH 6.0 Ur Specific [place] 1.016 Urine Protein Negative Urine Glucose (UA) Normal Urine Ketones Negative Urine Blood Negative Urine Nitrate Negative Urine Bilirubin Negative Urine Urobilinogen Normal Ur Leukocyte Esterase Neg Urine WBC (Auto) 1 Urine RBC (Auto) 2 Ur Squamous Epith Cells < 1 Blood Type Antibody Screen 02/17/19 02/17/19 02/17/19 11:01 11:01 11:01 WBC 8.7 RBC 4.78 Hgb 15.0 Hct 44.5 MCV 93.0 MCH 31.3 H MCHC 33.7 RDW 13.6 Plt Count 236 MPV 8.9 Neut % (Auto) 45.6 L Lymph % (Auto) 39.4 [place] % (Auto) 9.2 Eos % (Auto) 5.0 H Baso % (Auto) 0.8 Neut # (Auto) 4.0 Lymph # (Auto) 3.4 [place] # (Auto) 0.8 Eos # (Auto) 0.4 Baso # (Auto) 0.1 PT 12.3 H INR 1.1 APTT 37 H Puncture Site pCO2 pO2 HCO3 ABG pH ABG Total CO2 ABG O2 Saturation ABG Base Excess ABG Hemoglobin ABG Carboxyhemoglobin POC ABG HHb (Measured) ABG Methemoglobin Prasanth Test VBG pH VBG pCO2 VBG HCO3 VBG Total CO2 VBG O2 Sat (Calc) VBG Base Excess VBG Potassium Hgb O2 Saturation Sodium 140 Chloride 102 Glucose Lactate Liter Flow Potassium 3.9 Carbon Dioxide 30 Anion Gap 13 BUN 16 Creatinine 1.5 Est GFR ( Amer) 56 Est GFR (Non-Af Amer) 46 Random Glucose 90 Calcium 9.2 Phosphorus 4.3 Magnesium 2.1 Total Bilirubin 0.9 AST 30 ALT 36 Alkaline Phosphatase 71 NT-Pro-B Natriuret Pep 125 Total Protein 7.3 Albumin 4.3 Globulin 3.0 Albumin/Globulin Ratio 1.4 Lipase Venous Blood Potassium Urine Color Urine Clarity Urine pH Ur Specific [place] Urine Protein Urine Glucose (UA) Urine Ketones Urine Blood Urine Nitrate Urine Bilirubin Urine Urobilinogen Ur Leukocyte Esterase Urine WBC (Auto) Urine RBC (Auto) Ur Squamous Epith Cells Blood Type Antibody Screen 02/17/19 11:01 WBC RBC Hgb Hct MCV MCH MCHC RDW Plt Count MPV Neut % (Auto) Lymph % (Auto) [place] % (Auto) Eos % (Auto) Baso % (Auto) Neut # (Auto) Lymph # (Auto) [place] # (Auto) Eos # (Auto) Baso # (Auto) PT INR APTT Puncture Site pCO2 pO2 HCO3 ABG pH ABG Total CO2 ABG O2 Saturation ABG Base Excess ABG Hemoglobin ABG Carboxyhemoglobin POC ABG HHb (Measured) ABG Methemoglobin Prasanth Test VBG pH VBG pCO2 VBG HCO3 VBG Total CO2 VBG O2 Sat (Calc) VBG Base Excess VBG Potassium Hgb O2 Saturation Sodium Chloride Glucose Lactate Liter Flow Potassium Carbon Dioxide Anion Gap BUN Creatinine Est GFR ( Amer) Est GFR (Non-Af Amer) Random Glucose Calcium Phosphorus Magnesium Total Bilirubin AST ALT Alkaline Phosphatase NT-Pro-B Natriuret Pep Total Protein Albumin Globulin Albumin/Globulin Ratio Lipase Venous Blood Potassium Urine Color Urine Clarity Urine pH Ur Specific [place] Urine Protein Urine Glucose (UA) Urine Ketones Urine Blood Urine Nitrate Urine Bilirubin Urine Urobilinogen Ur Leukocyte Esterase Urine WBC (Auto) Urine RBC (Auto) Ur Squamous Epith Cells Blood Type A POSITIVE Antibody Screen Negative Assessment & Plan - Assessment and Plan (Free Text) Assessment: 68M seen and evaluated at bedside for chronic right foot first metatarsal fracture Plan: Patient seen and evaluated Plan discussed with Dr. Nassar F/u right foot xray No plan for surgical intervention at this time Podiatry will continue to follow while patient in house - Date & Time Date: 02/17/19 Time: 16:30
--- NOTE | 2019-02-17 17:03 | CARD ---
APPROVED REPORT Date of service: 02/16/2019 EKG Measurement Heart [id number] <Conclusion> Normal sinus rhythm Left axis deviation Left bundle branch block Abnormal ECG
[2019-02-17] MEDS: oxyCODONE 5 mg Immediate Release Tab PO PRN (21:50)
[2019-02-18] MEDS: Albuterol-Ipratrop 3 mg / 0.5 (3 ml) UD INH SCH ×4 (01:27→19:15)
[2019-02-18 01:32] VITALS: RESP 20
[2019-02-18] MEDS: oxyCODONE 5 mg Immediate Release Tab PO PRN ×3 (04:14→22:02)
[2019-02-18 06:35] LABS: BASO # 0.1 K/uL (0.0-0.2); BASO % 0.9 % (0.0-2.0); EOS # 0.6 K/uL (0.0-0.7); EOS % 8.6 % (0.0-4.0); HEMOGLOBIN 13.4 g/dL (12.0-18.0); LYMPH # 1.9 K/uL (1.0-4.3); LYMPH % 26.7 % (20.0-40.0); MEAN CORPUSCULAR HEMOGLOBIN 30.9 pg (27.0-31.0); MEAN CORPUSCULAR HGB CONC 33.6 g/dL (33.0-37.0); MEAN PLATELET VOLUME 8.6 fL (7.2-11.7); MONO # 0.7 K/uL (0.0-0.8); NEUT # 3.8 K/uL (1.8-7.0); NEUT % 53.8 % (50.0-75.0); NRBC % 0.1 % (0.0-2.0); RBC 4.34 Mil/uL (4.40-5.90); RED CELL DISTRIBUTION WIDTH 13.7 % (11.5-14.5)
[2019-02-18 06:46] LABS: ALB/GLOB RATIO 1.3 (1.0-2.1); ALBUMIN 3.7 g/dL (3.5-5.0); ALT/SGPT 21 U/L (21-72); AST/SGOT 25 U/L (17-59); BLOOD UREA NITROGEN 15 mg/dL (9-20); CALCIUM 8.7 mg/dl (8.6-10.4); GFR NON-AFRICAN AMERICAN 55
--- NOTE | 2019-02-18 07:52 | CP.PCM.PN ---
<Clarisse Gabriel P - Last Filed: 02/18/19 23:52> Subjective - Date & Time of Evaluation Date of Evaluation: 02/18/19 Time of Evaluation: 07:52 - Subjective Subjective: Progress note for Dr. Garsia. Patient seen and examined at bedside. POD#1 s/p ventral hernia repair. Patient states he feels well. Denies chest pain, shortness of breath, nausea, vomiting, lightheadedness, fever, and chills. Objective - Vital Signs/Intake and Output Vital Signs (last 24 hours): Temp Pulse Resp BP Pulse Ox 98.3 F 79 20 135/86 97 02/17/19 23:30 02/17/19 23:30 02/17/19 23:30 02/17/19 23:30 02/17/19 23:30 Intake and Output: 02/18/19 02/18/19 06:59 18:59 Intake Total 555 Balance 555 - Medications Medications: Current Medications Acetaminophen (Tylenol 325mg Tab) 650 mg PO Q6 PRN PRN Reason: Pain, Mild (1-3) Albuterol Sulfate (Albuterol 0.083% Inhal Cristin (2.5 Mg/3 Ml) Ud) 2.5 mg INH ONCE PRN PRN Reason: Wheezing Last Admin: 02/17/19 11:02 Dose: 2.5 mg Albuterol/Ipratropium (Duoneb 3 Mg/0.5 Mg (3 Ml) Ud) 3 ml INH RQ6 [facility] Last Admin: 02/18/19 01:27 Dose: 3 ml Budesonide (Pulmicort Respules) 0.5 mg INH RQ12 [facility] Carvedilol (Coreg) 3.125 mg PO BID [facility] Last Admin: 02/17/19 17:50 Dose: 3.125 mg Cyclobenzaprine HCl (Flexeril) 5 mg PO Q8H [facility] Last Admin: 02/18/19 00:17 Dose: 5 mg Fluticasone/Vilanterol (Breo Ellipta 200-25 Mcg Inh) 1 puff INH RQD [facility] Last Admin: 02/17/19 08:39 Dose: Not Given Heparin Sodium (Porcine) (Heparin) 5,000 units SC Q8 [facility] Lidocaine (Lidoderm) 1 ea TD DAILY [facility] Losartan Potassium (Cozaar) 25 mg PO DAILY [facility] Last Admin: 02/17/19 09:51 Dose: Not Given Ondansetron HCl (Zofran Inj) 4 mg IVP Q6H PRN PRN Reason: Nausea/Vomiting Oxycodone HCl (Oxycodone Immediate Release Tab) 5 mg PO Q6 PRN PRN Reason: Pain, moderate (4-7) Last Admin: 02/18/19 04:14 Dose: 5 mg Rosuvastatin Calcium (Crestor) 5 mg PO HS [facility] Last Admin: 02/17/19 21:49 Dose: 5 mg Tiotropium [place] (Spiriva Inhalation Handihaler Device) 2 inhaler INH DAILY [facility] - Labs Labs: 02/18/19 06:23 02/18/19 06:23 PT 12.3 SECONDS (9.7-12.2) H 02/17/19 11:01 INR 1.1 02/17/19 11:01 APTT 37 SECONDS (21-34) H 02/17/19 11:01 - Additional Findings Additional findings: - Constitutional Appears: Non-toxic, No Acute Distress - Head Exam Head Exam: ATRAUMATIC, NORMOCEPHALIC - Eye Exam Eye Exam: EOMI, Normal appearance, PERRL - ENT Exam ENT Exam: Mucous Membranes Moist - Neck Exam Neck Exam: Full ROM - Respiratory Exam Respiratory Exam: Clear to Ausculation Bilateral. absent: Rales, Rhonchi, Wheezes, Respiratory Distress - Cardiovascular Exam Cardiovascular Exam: REGULAR RHYTHM, +S1, +S2 - GI/Abdominal Exam GI & Abdominal Exam: Normal Bowel Sounds. absent: Distended, Firm, Guarding, Rigid, Tenderness Additional comments: abdominal binder in place. - Extremities Exam Extremities Exam: Full ROM, Normal Capillary Refill, Normal Inspection. absent: Calf Tenderness, Pedal Edema, Tenderness Additional comments: Stitches to R lateral foot, healing well, no signs of infection - Neurological Exam Neurological Exam: Alert, Awake, Oriented x3. Moving all extremities equally. - Psychiatric Exam Psychiatric exam: Normal Affect, Normal Mood - Skin Skin Exam: Dry, Normal Color, Warm Assessment and Plan - Assessment and Plan (Free Text) Plan: 68yo M PMH CHF, COPD, HLD admitted for strangulated ventral abdominal hernia. Incarcerated Ventral Abdominal hernia CT A/P with contrast (02/16): pending read. prelim: 8.0x3.2cm ventral hernia containing only fat with stranding suggesting the possibility of strangulation or incarceration. CXR: no acute cardiopulm dz 1L NS, Zofran x1, Morphine 2mg, Protonix given in ED - Zosyn 3.375gm IVPB q6 (started 02/16) - Oxycodone 5mg Q6H PRN - Lidocaine patch - Zofran 4mg IVP q6 prn - considering patient's Hx of heart disease, NSAIDs CI - Surgery consulted: Dr. Felisha gilmore appreciated - incarcerated ventral hernia repaired 02/17/19 -tolerated well HFrEF EKG unchanged from 2017 - ECHO02/17/19: apical hypokinesis, 40-45%, global hypokinesis, LV motion suggestive of conduction abnormality; pericardial fat pad - ECHO (11/19/18): LVEF 41% with mild-mod systolic dysfunction, diastolic dysfunction - Stress test: Small area of reversible perfusion defect - BNP: 125 - home Coreg 3.125mg po BID - home Cozaar 25mg po daily - Cardio consulted: Dr. Liu - help appreciated * Cath 02/19/19 * NPO after MD * Hold DVT ppx COPD/Emphysema - Duonebs q6 [facility] - Breo-Ellipta 1 puff daily - Spiriva 2 puffs daily - Pulmicort 0.5mg q12 - Pulm consulted: Dr. Schreiber - help appreciated Hyperlipidemia - Crestor 5mg po HS Recent Foot Surgery - Pod consulted: Dr. Nassar - juan r appreciated PPx - DVT: Start Heparin [id number] Q8H- held for cath 02/19/19, bilateral SCDs - GI: not indicated at this time - HHD- NPO after MN Abnormal stress test. Plan for cardiac cath with Dr. Liu tomorrow. Case discussed with Dr. Ady Gabriel, PGY-1 <Eloina Garsia - Last Filed: 02/19/19 14:09> Objective - Vital Signs/Intake and Output Vital Signs (last 24 hours): Temp Pulse Resp BP Pulse Ox 97.9 F 90 20 128/82 95 02/19/19 07:00 02/19/19 09:15 02/19/19 07:00 02/19/19 09:15 02/19/19 07:00 - Medications Medications: Current Medications Acetaminophen (Tylenol 325mg Tab) 650 mg PO Q6 PRN PRN Reason: Pain, Mild (1-3) Albuterol Sulfate (Albuterol 0.083% Inhal Cristin (2.5 Mg/3 Ml) Ud) 2.5 mg INH ONCE PRN PRN Reason: Wheezing Last Admin: 02/17/19 11:02 Dose: 2.5 mg Albuterol/Ipratropium (Duoneb 3 Mg/0.5 Mg (3 Ml) Ud) 3 ml INH RQ6 [facility] Last Admin: 02/19/19 13:23 Dose: 3 ml Budesonide (Pulmicort Respules) 0.5 mg INH RQ12 [facility] Carvedilol (Coreg) 3.125 mg PO BID [facility] Last Admin: 02/19/19 09:18 Dose: 3.125 mg Cyclobenzaprine HCl (Flexeril) 5 mg PO Q8H [facility] Last Admin: 02/19/19 08:08 Dose: 5 mg Fluticasone/Vilanterol (Breo Ellipta 200-25 Mcg Inh) 1 puff INH RQD [facility] Last Admin: 02/18/19 13:07 Dose: Not Given Heparin Sodium (Porcine) (Heparin) 5,000 units SC Q8 [facility] Last Admin: 02/18/19 22:03 Dose: 5,000 units Lidocaine (Lidoderm) 1 ea TD DAILY [facility] Last Admin: 02/19/19 09:18 Dose: 1 ea Losartan Potassium (Cozaar) 25 mg PO DAILY [facility] Last Admin: 02/19/19 09:17 Dose: 25 mg Ondansetron HCl (Zofran Inj) 4 mg IVP Q6H PRN PRN Reason: Nausea/Vomiting Oxycodone HCl (Oxycodone Immediate Release Tab) 5 mg PO Q6 PRN PRN Reason: Pain, moderate (4-7) Last Admin: 02/19/19 08:08 Dose: 5 mg Rosuvastatin Calcium (Crestor) 5 mg PO HS [facility] Last Admin: 02/18/19 22:02 Dose: 5 mg Senna/Docusate Sodium (Senokot S 50 Mg-8.6 Mg) 1 tab PO DAILY [facility] Last Admin: 02/19/19 09:36 Dose: 1 tab Tiotropium [place] (Spiriva Inhalation Handihaler Device) 2 inhaler INH DAILY [facility] - Labs Labs: 02/19/19 06:30 02/19/19 06:30 PT 12.3 SECONDS (9.7-12.2) H 02/17/19 11:01 INR 1.1 02/17/19 11:01 APTT 37 SECONDS (21-34) H 02/17/19 11:01 Attending/Attestation - Attestation I have personally seen and examined this patient.: Yes I have fully participated in the care of the patient.: Yes I have reviewed all pertinent clinical information, including history, physical exam and plan: Yes Notes (Text): Seen and examined with the resident 1.s/p hernia repair 2.Systolic heart failure 3.copd 4.hyperlipidemia Echo shows hypokinesia of LV. Positive stress test and Dr Liu recommending cardiac cath after discussion he agrees to go for cardiac cath tomorrow
--- NOTE | 2019-02-18 08:10 | RAD ---
Date of service: 02/17/2019 PROCEDURE: Right Foot Radiographs. HISTORY: chronic first metatarsal fx COMPARISON: 08/03/2018 TECHNIQUE: 3 views obtained. FINDINGS: BONES: Smooth periosteal reaction/callus formation accentuated the medial 1st metatarsal shaft present faint radiolucency of this metatarsal shaft on oblique view noted. Chronic appearing fracture here nondisplaced inferred. No other acute or some other subacute or chronic fractures appreciated. Clinodactyly 5th toe similar. JOINTS: Minimal 1st metatarsal-phalangeal joint arthrosis midfoot mild arthrosis. SOFT TISSUES: Mild increased soft tissue density about the mid forefoot. OTHER FINDINGS: Sinton's tendon insetional enesthesophyte. IMPRESSION: Chronic right 1st metatarsal fracture nondisplaced. Other findings as above.
[2019-02-18] MEDS: Lidocaine 5% Patch TD SCH (09:12)
[2019-02-18] MEDS: Fluticasone-Vilanterol 200/25mcg Diskus INH SCH (13:07)
--- NOTE | 2019-02-18 16:51 | CARD ---
APPROVED REPORT Date of service: 02/17/2019 Protocol: LEXISCAN Test Type: LEXISCAN STRESS Test Indications: PRE OP Medical History: CP Target HR: 151 bpm Resting ECG: NSR W/ LBBB Resting Heart Rate: 82 bpm Resting Blood Pressure: 140/80mmHg submaximum (85%): 128 bpm TEST SUMMARY PREINFSNHYPERV.16:[id number]/80.0. INFUSIONDOSE 100:300.00.01.082/.0. [id number]/80.0. PROCEDURE Pharmacologic stress testing was performed using 0.4mg per 5ml of regadenoson given intravenously over 7-10 seconds. POST EXERCISE Reason for Termination: Protocol Completed Target HR: No Max HR: 82 bpm 67% of Maximum Predicted HR: 151 bpm Exercise duration: 00:30 min:sec, 0 Stage Exercise capacity: 1.0METs Max Blood Pressure: 140/80mmHg Blood Pressure response to exercise: normal resting BP - appropriate response Heart Rate response to exercise: appropriate Chest Pain: No, none Angina index: 0 Arrhythmia: No, none ST Change: No, none Deviation: 0 mm INTERPRETATION Stress EKG Conclusion: NON-DIAGNOSTIC TEST DUE TO PRE-EXISTING LBBB NORMAL BP RESPONSE TO LEXISCAN NUCLEAR STUDIES TO BE READ SEPARATELY EXAM: Myocardial Perfusion STRESS/REST Imaging Protocol The imaging protocol used to acquire images was Stress Tc-99m/rest Tc-99m 2day Rest Spect myocardial perfusion imaging was performed in supine position 45 minutes following the injection of 32.0 mCi of Tc-99 Myoview. Gated Stress Spect was performed 45 minutes after intravenous 13.0 mCi Tc-99 Myoview injection. The images were gated to evaluate regional wall motion and calculate ventricular ejection fraction.Images were reconstructed using backfilter projection method in short horizontal and verticle long axis. Spect slices were generated. RESTING DATA SUR148.76rqNA6.10L/min ESV99.00mlMyocardial Danz166.00g Av. Heart Rate85.00bpm EF38.00% STRESS DATA NRR140.93gqLI7.70L/min CGV415.00mlMyocardial Khqu042.00g EF42.00% Regional WT score at stress:2.00 Regional WM score at stress:0.00 Summed WT score at stress:30.00 Av. Heart Rate76.00bpmSummed WM score at stress:15.00 LV Perf. Quant 17 Seg. SSS16.00 17 Seg. SRS15.00 17 Seg. SDS2.00 Stress Defect Extent (% LAD)31.90Rest Defect Extent (% LAD)23.10Rev. Defect Extent (% LAD)8.80 Stress Defect Extent (% LCX)6.30Rest Defect Extent (% LCX)18.80Rev. Defect Extent (% LCX)0.00 Stress Defect Extent (% RCA)23.30Rest Defect Extent (% RCA)32.20Rev. Defect Extent (% RCA)0.00 Stress Defect Extent (% MICAELA)31.10Rest Defect Extent (% MICAELA)31.30Rev. Defect Extent (% MICALEA)4.30 IMPRESSION Abnormal Myocardial Perfusion exercise stress study Left Ventricle LV Function:Left ventricle systolic function is mildly impaired The Ejection Fraction is 42%. Metabolism/Perfusion Defects: There is myocardial scarring and stress-induced ramone-infarct ischemia involving the septum and infero-apical area. Conclusion 1. There is myocardial scarring and stress-induced ramone-infarct ischemia involving the septum and infero-apical area. 2. Left ventricle systolic function is mildly impaired 3. The Ejection Fraction is 42%.
--- NOTE | 2019-02-18 16:57 | CP.PCM.PN ---
<Birgit Lord - Last Filed: 02/18/19 16:54> Subjective - Date & Time of Evaluation Date of Evaluation: 02/18/19 Time of Evaluation: 09:00 - Subjective Subjective: Patient seen and examined. No overnight events reported. S/P primary repair of Incarcerated Hernia. Denies Chest pain, palpitations, or SOB Objective - Vital Signs/Intake and Output Vital Signs (last 24 hours): Temp Pulse Resp BP Pulse Ox 98.8 F 81 20 107/74 96 02/18/19 15:00 02/18/19 15:00 02/18/19 15:00 02/18/19 15:00 02/18/19 15:00 Intake and Output: 02/18/19 02/18/19 06:59 18:59 Intake Total 555 350 Balance 555 350 - Medications Medications: Current Medications Acetaminophen (Tylenol 325mg Tab) 650 mg PO Q6 PRN PRN Reason: Pain, Mild (1-3) Albuterol Sulfate (Albuterol 0.083% Inhal Cristin (2.5 Mg/3 Ml) Ud) 2.5 mg INH ONCE PRN PRN Reason: Wheezing Last Admin: 02/17/19 11:02 Dose: 2.5 mg Albuterol/Ipratropium (Duoneb 3 Mg/0.5 Mg (3 Ml) Ud) 3 ml INH RQ6 [facility] Last Admin: 02/18/19 13:06 Dose: 3 ml Budesonide (Pulmicort Respules) 0.5 mg INH RQ12 [facility] Carvedilol (Coreg) 3.125 mg PO BID [facility] Last Admin: 02/18/19 09:13 Dose: 3.125 mg Cyclobenzaprine HCl (Flexeril) 5 mg PO Q8H [facility] Last Admin: 02/18/19 08:39 Dose: 5 mg Fluticasone/Vilanterol (Breo Ellipta 200-25 Mcg Inh) 1 puff INH RQD [facility] Last Admin: 02/18/19 13:07 Dose: Not Given Heparin Sodium (Porcine) (Heparin) 5,000 units SC Q8 [facility] Last Admin: 02/18/19 13:10 Dose: 5,000 units Lidocaine (Lidoderm) 1 ea TD DAILY [facility] Last Admin: 02/18/19 09:12 Dose: 1 ea Losartan Potassium (Cozaar) 25 mg PO DAILY [facility] Last Admin: 02/18/19 09:13 Dose: 25 mg Ondansetron HCl (Zofran Inj) 4 mg IVP Q6H PRN PRN Reason: Nausea/Vomiting Oxycodone HCl (Oxycodone Immediate Release Tab) 5 mg PO Q6 PRN PRN Reason: Pain, moderate (4-7) Last Admin: 02/18/19 16:12 Dose: 5 mg Rosuvastatin Calcium (Crestor) 5 mg PO HS [facility] Last Admin: 02/17/19 21:49 Dose: 5 mg Tiotropium [place] (Spiriva Inhalation Handihaler Device) 2 inhaler INH DAILY [facility] - Labs Labs: 02/18/19 06:23 02/18/19 06:23 PT 12.3 SECONDS (9.7-12.2) H 02/17/19 11:01 INR 1.1 02/17/19 11:01 APTT 37 SECONDS (21-34) H 02/17/19 11:01 - Additional Findings Additional findings: - Constitutional Appears: Well, No Acute Distress - Head Exam Head Exam: ATRAUMATIC, NORMAL INSPECTION - Eye Exam Eye Exam: EOMI - ENT Exam ENT Exam: Mucous Membranes Moist - Respiratory Exam Respiratory Exam: Clear to Auscultation Bilateral, NORMAL BREATHING PATTERN. absent: Rales, Rhonchi, Wheezes - Cardiovascular Exam Cardiovascular Exam: REGULAR RHYTHM, +S1, +S2 - GI/Abdominal Exam GI & Abdominal Exam: Normal Bowel Sounds Additional comments: s/p hernia repair; binder in place - Extremities Exam Extremities exam: Positive for: normal inspection, pedal pulses present. Negative for: pedal edema, tenderness - Neurological Exam Neurological exam: Alert, Oriented x3 - Psychiatric Exam Psychiatric exam: Normal Affect, Normal Mood - Skin Skin Exam: Dry, Normal Color, Warm Assessment and Plan - Assessment and Plan (Free Text) Assessment: 68 year old male with a history of COPD, CHF, CAD, and HLD, who presented with abdominal pain and was admitted for incarcerated hernia repair. Cardiology was consulted for cardiac clearance; however, surgery team performed repair under local anesthesia. Plan: Cardiac clearance for surgery - Stress test: Small area of reversible perfusion defect - ECHO: apical hypokinesis, ~40% EF; f/u official report - Echo (11/2018): EF 41% w/mild to mod systolic dysfunction and diastolic dysfunction CHF - Continue Coreg 3.125mg PO BID, Cozaar 25mg PO daily HLD - Continue Crestor 5mg PO HS Dispo: For Cath Tomorrow morning. , NPO after midnight. Case discussed with Dr. Noe Lord, PGY2 <Harris Liu - Last Filed: 02/18/19 22:59> Subjective - Subjective Subjective: Patient seen and evaluated personally by me. Plan of cre d/w the medical resi dent and as documented Objective - Vital Signs/Intake and Output Vital Signs (last 24 hours): Temp Pulse Resp BP Pulse Ox 98.8 F 81 20 107/74 96 02/18/19 15:00 02/18/19 15:00 02/18/19 15:00 02/18/19 15:00 02/18/19 15:00 Intake and Output: 02/18/19 02/19/19 18:59 06:59 Intake Total 350 Balance 350 - Medications Medications: Current Medications Acetaminophen (Tylenol 325mg Tab) 650 mg PO Q6 PRN PRN Reason: Pain, Mild (1-3) Albuterol Sulfate (Albuterol 0.083% Inhal Cristin (2.5 Mg/3 Ml) Ud) 2.5 mg INH ONCE PRN PRN Reason: Wheezing Last Admin: 02/17/19 11:02 Dose: 2.5 mg Albuterol/Ipratropium (Duoneb 3 Mg/0.5 Mg (3 Ml) Ud) 3 ml INH RQ6 [facility] Last Admin: 02/18/19 19:15 Dose: 3 ml Budesonide (Pulmicort Respules) 0.5 mg INH RQ12 [facility] Carvedilol (Coreg) 3.125 mg PO BID [facility] Last Admin: 02/18/19 17:03 Dose: 3.125 mg Cyclobenzaprine HCl (Flexeril) 5 mg PO Q8H [facility] Last Admin: 02/18/19 17:03 Dose: 5 mg Fluticasone/Vilanterol (Breo Ellipta 200-25 Mcg Inh) 1 puff INH RQD [facility] Last Admin: 02/18/19 13:07 Dose: Not Given Heparin Sodium (Porcine) (Heparin) 5,000 units SC Q8 [facility] Last Admin: 02/18/19 22:03 Dose: 5,000 units Lidocaine (Lidoderm) 1 ea TD DAILY [facility] Last Admin: 02/18/19 09:12 Dose: 1 ea Losartan Potassium (Cozaar) 25 mg PO DAILY [facility] Last Admin: 02/18/19 09:13 Dose: 25 mg Ondansetron HCl (Zofran Inj) 4 mg IVP Q6H PRN PRN Reason: Nausea/Vomiting Oxycodone HCl (Oxycodone Immediate Release Tab) 5 mg PO Q6 PRN PRN Reason: Pain, moderate (4-7) Last Admin: 02/18/19 22:02 Dose: 5 mg Rosuvastatin Calcium (Crestor) 5 mg PO HS [facility] Last Admin: 02/18/19 22:02 Dose: 5 mg Tiotropium [place] (Spiriva Inhalation Handihaler Device) 2 inhaler INH DAILY [facility] - Labs Labs: 02/18/19 06:23 02/18/19 06:23 PT 12.3 SECONDS (9.7-12.2) H 02/17/19 11:01 INR 1.1 02/17/19 11:01 APTT 37 SECONDS (21-34) H 02/17/19 11:01
--- NOTE | 2019-02-18 18:27 | CP.PCM.PN ---
Subjective - Date & Time of Evaluation Date of Evaluation: 02/18/19 Time of Evaluation: 07:45 - Subjective Subjective: General Surgery Note for Arago Patient seen and examined at bedside. No acute event overnight. Patient states that his pain is controlled. He reports flatus and BM. Denies fever/chills and nausea/vomiting. Patient is doing fine and has no complaints right now. Objective - Vital Signs/Intake and Output Vital Signs (last 24 hours): Temp Pulse Resp BP Pulse Ox 98.8 F 81 20 107/74 96 02/18/19 15:00 02/18/19 15:00 02/18/19 15:00 02/18/19 15:00 02/18/19 15:00 Intake and Output: 02/18/19 02/18/19 06:59 18:59 Intake Total 555 350 Balance 555 350 - Medications Medications: Current Medications Acetaminophen (Tylenol 325mg Tab) 650 mg PO Q6 PRN PRN Reason: Pain, Mild (1-3) Albuterol Sulfate (Albuterol 0.083% Inhal Cristin (2.5 Mg/3 Ml) Ud) 2.5 mg INH ONCE PRN PRN Reason: Wheezing Last Admin: 02/17/19 11:02 Dose: 2.5 mg Albuterol/Ipratropium (Duoneb 3 Mg/0.5 Mg (3 Ml) Ud) 3 ml INH RQ6 [facility] Last Admin: 02/18/19 13:06 Dose: 3 ml Budesonide (Pulmicort Respules) 0.5 mg INH RQ12 [facility] Carvedilol (Coreg) 3.125 mg PO BID [facility] Last Admin: 02/18/19 17:03 Dose: 3.125 mg Cyclobenzaprine HCl (Flexeril) 5 mg PO Q8H [facility] Last Admin: 02/18/19 17:03 Dose: 5 mg Fluticasone/Vilanterol (Breo Ellipta 200-25 Mcg Inh) 1 puff INH RQD [facility] Last Admin: 02/18/19 13:07 Dose: Not Given Heparin Sodium (Porcine) (Heparin) 5,000 units SC Q8 [facility] Last Admin: 02/18/19 13:10 Dose: 5,000 units Lidocaine (Lidoderm) 1 ea TD DAILY [facility] Last Admin: 02/18/19 09:12 Dose: 1 ea Losartan Potassium (Cozaar) 25 mg PO DAILY [facility] Last Admin: 02/18/19 09:13 Dose: 25 mg Ondansetron HCl (Zofran Inj) 4 mg IVP Q6H PRN PRN Reason: Nausea/Vomiting Oxycodone HCl (Oxycodone Immediate Release Tab) 5 mg PO Q6 PRN PRN Reason: Pain, moderate (4-7) Last Admin: 02/18/19 16:12 Dose: 5 mg Rosuvastatin Calcium (Crestor) 5 mg PO HS [facility] Last Admin: 02/17/19 21:49 Dose: 5 mg Tiotropium [place] (Spiriva Inhalation Handihaler Device) 2 inhaler INH DAILY [facility] - Labs Labs: 02/18/19 06:23 02/18/19 06:23 PT 12.3 SECONDS (9.7-12.2) H 02/17/19 11:01 INR 1.1 02/17/19 11:01 APTT 37 SECONDS (21-34) H 02/17/19 11:01 - Constitutional Appears: No Acute Distress - Head Exam Head Exam: ATRAUMATIC, NORMOCEPHALIC - Eye Exam Eye Exam: EOMI, Normal appearance Pupil Exam: PERRL - ENT Exam ENT Exam: Mucous Membranes Moist - Respiratory Exam Respiratory Exam: NORMAL BREATHING PATTERN - Cardiovascular Exam Cardiovascular Exam: REGULAR RHYTHM - GI/Abdominal Exam GI & Abdominal Exam: Soft, Normal Bowel Sounds. absent: Distended, Firm, Guarding, Rigid, Tenderness - Extremities Exam Extremities Exam: Normal Capillary Refill - Back Exam Back Exam: absent: CVA tenderness (L), CVA tenderness (R) - Neurological Exam Neurological Exam: Alert, Awake, Oriented x3 - Psychiatric Exam Psychiatric exam: Normal Affect, Normal Mood - Skin Skin Exam: Dry, Intact, Normal Color, Warm Assessment and Plan - Assessment and Plan (Free Text) Assessment: 68M s/p ventral hernia repair POD#1 Plan: -Diet as tolerated -Pain control -Medical management as per primary -Discussed with Felisha Nation PGY2
[2019-02-19] MEDS: Albuterol-Ipratrop 3 mg / 0.5 (3 ml) UD INH SCH ×3 (02:27→13:23)
[2019-02-19 06:42] LABS: BASO # 0.1 K/uL (0.0-0.2); BASO % 0.8 % (0.0-2.0); EOS # 0.5 K/uL (0.0-0.7); EOS % 8.1 % (0.0-4.0); HEMOGLOBIN 13.7 g/dL (12.0-18.0); LYMPH # 1.8 K/uL (1.0-4.3); LYMPH % 27.2 % (20.0-40.0); MEAN CELL VOLUME 92.1 fL (80.0-94.0); MEAN CORPUSCULAR HEMOGLOBIN 31.3 pg (27.0-31.0); MEAN PLATELET VOLUME 8.9 fL (7.2-11.7); MONO # 0.7 K/uL (0.0-0.8); NEUT # 3.5 K/uL (1.8-7.0); NEUT % 52.9 % (50.0-75.0); RBC 4.39 Mil/uL (4.40-5.90); RED CELL DISTRIBUTION WIDTH 13.5 % (11.5-14.5); WHITE BLOOD COUNT 6.6 K/uL (4.8-10.8)
[2019-02-19 07:40] VITALS: TEMP 97.9; O2SAT 95
[2019-02-19 07:41] LABS: ALB/GLOB RATIO 1.4 (1.0-2.1); ALBUMIN 3.9 g/dL (3.5-5.0); ALT/SGPT 14 U/L (21-72); AST/SGOT 28 U/L (17-59); BLOOD UREA NITROGEN 12 mg/dL (9-20); CALCIUM 8.8 mg/dl (8.6-10.4); GFR NON-AFRICAN AMERICAN 55
--- NOTE | 2019-02-19 08:05 | CP.PCM.PN ---
Subjective - Date & Time of Evaluation Date of Evaluation: 02/19/19 Time of Evaluation: 07:10 - Subjective Subjective: General Surgery: [place] Patient seen and examined this am at bedside. Pain well controlled, passing gas, no BM, no n/v, f/c. incision cdi.tolerating diet 12 point ROS otherwise negative Objective - Vital Signs/Intake and Output Vital Signs (last 24 hours): Temp Pulse Resp BP Pulse Ox 97.9 F 87 20 135/90 95 02/19/19 07:00 02/19/19 07:00 02/19/19 07:00 02/19/19 07:00 02/19/19 07:00 - Medications Medications: Current Medications Acetaminophen (Tylenol 325mg Tab) 650 mg PO Q6 PRN PRN Reason: Pain, Mild (1-3) Albuterol Sulfate (Albuterol 0.083% Inhal Cristin (2.5 Mg/3 Ml) Ud) 2.5 mg INH ONCE PRN PRN Reason: Wheezing Last Admin: 02/17/19 11:02 Dose: 2.5 mg Albuterol/Ipratropium (Duoneb 3 Mg/0.5 Mg (3 Ml) Ud) 3 ml INH RQ6 [facility] Last Admin: 02/19/19 07:58 Dose: 3 ml Budesonide (Pulmicort Respules) 0.5 mg INH RQ12 [facility] Carvedilol (Coreg) 3.125 mg PO BID [facility] Last Admin: 02/18/19 17:03 Dose: 3.125 mg Cyclobenzaprine HCl (Flexeril) 5 mg PO Q8H [facility] Last Admin: 02/18/19 23:47 Dose: 5 mg Fluticasone/Vilanterol (Breo Ellipta 200-25 Mcg Inh) 1 puff INH RQD [facility] Last Admin: 02/18/19 13:07 Dose: Not Given Heparin Sodium (Porcine) (Heparin) 5,000 units SC Q8 [facility] Last Admin: 02/18/19 22:03 Dose: 5,000 units Lidocaine (Lidoderm) 1 ea TD DAILY [facility] Last Admin: 02/18/19 09:12 Dose: 1 ea Losartan Potassium (Cozaar) 25 mg PO DAILY [facility] Last Admin: 02/18/19 09:13 Dose: 25 mg Ondansetron HCl (Zofran Inj) 4 mg IVP Q6H PRN PRN Reason: Nausea/Vomiting Oxycodone HCl (Oxycodone Immediate Release Tab) 5 mg PO Q6 PRN PRN Reason: Pain, moderate (4-7) Last Admin: 02/18/19 22:02 Dose: 5 mg Rosuvastatin Calcium (Crestor) 5 mg PO HS [facility] Last Admin: 02/18/19 22:02 Dose: 5 mg Senna/Docusate Sodium (Senokot S 50 Mg-8.6 Mg) 1 tab PO DAILY [facility] Tiotropium [place] (Spiriva Inhalation Handihaler Device) 2 inhaler INH DAILY [facility] - Labs Labs: 02/19/19 06:30 02/19/19 06:30 PT 12.3 SECONDS (9.7-12.2) H 02/17/19 11:01 INR 1.1 02/17/19 11:01 APTT 37 SECONDS (21-34) H 02/17/19 11:01 - Constitutional Appears: Well, Non-toxic, No Acute Distress - Head Exam Head Exam: ATRAUMATIC, NORMOCEPHALIC - Eye Exam Eye Exam: EOMI - ENT Exam ENT Exam: Mucous Membranes Moist - Respiratory Exam Respiratory Exam: NORMAL BREATHING PATTERN - Cardiovascular Exam Cardiovascular Exam: REGULAR RHYTHM - GI/Abdominal Exam GI & Abdominal Exam: Soft. absent: Guarding, Tenderness, Rebound Additional comments: minimal ecchymosis surrounding incision, improved from previous exam - Extremities Exam Extremities Exam: absent: Calf Tenderness, Pedal Edema - Neurological Exam Neurological Exam: Alert, Awake, Oriented x3 - Psychiatric Exam Psychiatric exam: Normal Affect, Normal Mood - Skin Skin Exam: Dry, Intact, Warm Additional comments: slight ecchymosis surrouding incision, cdi Assessment and Plan - Assessment and Plan (Free Text) Assessment: 68 M s/p open Ventral Hernia repair, POD 2 Plan: - diet as tolerated - continue pain control - further medical management per primary - pt is clear for d/c from surgical standpoint, please reconsult as needed - discussed with Dr. Felisha Hernandez, PGY 1
[2019-02-19] MEDS: oxyCODONE 5 mg Immediate Release Tab PO PRN (08:08)
[2019-02-19] MEDS: Lidocaine 5% Patch TD SCH (09:18)
[2019-02-19] MEDS ORDERED: Docusate-Senna 50 mg-8.6 mg Tab PO SCH (10:00)
--- NOTE | 2019-02-19 11:51 | CP.PCM.PN ---
Subjective - Date & Time of Evaluation Date of Evaluation: 02/19/19 Time of Evaluation: 09:00 - Subjective Subjective: Patient refusing cardiac cath Objective - Vital Signs/Intake and Output Vital Signs (last 24 hours): Temp Pulse Resp BP Pulse Ox 97.9 F 87 20 135/90 95 02/19/19 07:00 02/19/19 07:00 02/19/19 07:00 02/19/19 07:00 02/19/19 07:00 - Medications Medications: Current Medications Acetaminophen (Tylenol 325mg Tab) 650 mg PO Q6 PRN PRN Reason: Pain, Mild (1-3) Albuterol Sulfate (Albuterol 0.083% Inhal Cristin (2.5 Mg/3 Ml) Ud) 2.5 mg INH ONCE PRN PRN Reason: Wheezing Last Admin: 02/17/19 11:02 Dose: 2.5 mg Albuterol/Ipratropium (Duoneb 3 Mg/0.5 Mg (3 Ml) Ud) 3 ml INH RQ6 [facility] Last Admin: 02/19/19 07:58 Dose: 3 ml Budesonide (Pulmicort Respules) 0.5 mg INH RQ12 [facility] Carvedilol (Coreg) 3.125 mg PO BID [facility] Last Admin: 02/19/19 09:18 Dose: 3.125 mg Cyclobenzaprine HCl (Flexeril) 5 mg PO Q8H [facility] Last Admin: 02/19/19 08:08 Dose: 5 mg Fluticasone/Vilanterol (Breo Ellipta 200-25 Mcg Inh) 1 puff INH RQD [facility] Last Admin: 02/18/19 13:07 Dose: Not Given Heparin Sodium (Porcine) (Heparin) 5,000 units SC Q8 [facility] Last Admin: 02/18/19 22:03 Dose: 5,000 units Lidocaine (Lidoderm) 1 ea TD DAILY [facility] Last Admin: 02/19/19 09:18 Dose: 1 ea Losartan Potassium (Cozaar) 25 mg PO DAILY [facility] Last Admin: 02/19/19 09:17 Dose: 25 mg Ondansetron HCl (Zofran Inj) 4 mg IVP Q6H PRN PRN Reason: Nausea/Vomiting Oxycodone HCl (Oxycodone Immediate Release Tab) 5 mg PO Q6 PRN PRN Reason: Pain, moderate (4-7) Last Admin: 02/19/19 08:08 Dose: 5 mg Rosuvastatin Calcium (Crestor) 5 mg PO HS [facility] Last Admin: 02/18/19 22:02 Dose: 5 mg Senna/Docusate Sodium (Senokot S 50 Mg-8.6 Mg) 1 tab PO DAILY [facility] Last Admin: 02/19/19 09:36 Dose: 1 tab Tiotropium [place] (Spiriva Inhalation Handihaler Device) 2 inhaler INH DAILY [facility] - Labs Labs: 02/19/19 06:30 02/19/19 06:30 PT 12.3 SECONDS (9.7-12.2) H 02/17/19 11:01 INR 1.1 02/17/19 11:01 APTT 37 SECONDS (21-34) H 02/17/19 11:01
[2019-02-19 12:10] VITALS: BP 128/82; PULSE 90
--- NOTE | 2019-02-19 13:21 | CP.PCM.PN ---
<Birgit Lord - Last Filed: 02/19/19 13:17> Subjective - Date & Time of Evaluation Date of Evaluation: 02/19/19 Time of Evaluation: 13:17 - Subjective Subjective: Patient seen and examined. No overnight events reported. S/P primary repair of Incarcerated Hernia. Denies Chest pain, palpitations, or SOB. Refused schedule cath this morning. Objective - Vital Signs/Intake and Output Vital Signs (last 24 hours): Temp Pulse Resp BP Pulse Ox 97.9 F 90 20 128/82 95 02/19/19 07:00 02/19/19 09:15 02/19/19 07:00 02/19/19 09:15 02/19/19 07:00 - Medications Medications: Current Medications Acetaminophen (Tylenol 325mg Tab) 650 mg PO Q6 PRN PRN Reason: Pain, Mild (1-3) Albuterol Sulfate (Albuterol 0.083% Inhal Cristin (2.5 Mg/3 Ml) Ud) 2.5 mg INH ONCE PRN PRN Reason: Wheezing Last Admin: 02/17/19 11:02 Dose: 2.5 mg Albuterol/Ipratropium (Duoneb 3 Mg/0.5 Mg (3 Ml) Ud) 3 ml INH RQ6 [facility] Last Admin: 02/19/19 07:58 Dose: 3 ml Budesonide (Pulmicort Respules) 0.5 mg INH RQ12 [facility] Carvedilol (Coreg) 3.125 mg PO BID [facility] Last Admin: 02/19/19 09:18 Dose: 3.125 mg Cyclobenzaprine HCl (Flexeril) 5 mg PO Q8H [facility] Last Admin: 02/19/19 08:08 Dose: 5 mg Fluticasone/Vilanterol (Breo Ellipta 200-25 Mcg Inh) 1 puff INH RQD [facility] Last Admin: 02/18/19 13:07 Dose: Not Given Heparin Sodium (Porcine) (Heparin) 5,000 units SC Q8 [facility] Last Admin: 02/18/19 22:03 Dose: 5,000 units Lidocaine (Lidoderm) 1 ea TD DAILY [facility] Last Admin: 02/19/19 09:18 Dose: 1 ea Losartan Potassium (Cozaar) 25 mg PO DAILY [facility] Last Admin: 02/19/19 09:17 Dose: 25 mg Ondansetron HCl (Zofran Inj) 4 mg IVP Q6H PRN PRN Reason: Nausea/Vomiting Oxycodone HCl (Oxycodone Immediate Release Tab) 5 mg PO Q6 PRN PRN Reason: Pain, moderate (4-7) Last Admin: 02/19/19 08:08 Dose: 5 mg Rosuvastatin Calcium (Crestor) 5 mg PO HS [facility] Last Admin: 02/18/19 22:02 Dose: 5 mg Senna/Docusate Sodium (Senokot S 50 Mg-8.6 Mg) 1 tab PO DAILY [facility] Last Admin: 02/19/19 09:36 Dose: 1 tab Tiotropium [place] (Spiriva Inhalation Handihaler Device) 2 inhaler INH DAILY [facility] - Labs Labs: 02/19/19 06:30 02/19/19 06:30 PT 12.3 SECONDS (9.7-12.2) H 02/17/19 11:01 INR 1.1 02/17/19 11:01 APTT 37 SECONDS (21-34) H 02/17/19 11:01 - Additional Findings Additional findings: - Constitutional Appears: Well, No Acute Distress - Head Exam Head Exam: ATRAUMATIC, NORMAL INSPECTION - Eye Exam Eye Exam: EOMI - ENT Exam ENT Exam: Mucous Membranes Moist - Respiratory Exam Respiratory Exam: Clear to Auscultation Bilateral, NORMAL BREATHING PATTERN. absent: Rales, Rhonchi, Wheezes - Cardiovascular Exam Cardiovascular Exam: REGULAR RHYTHM, +S1, +S2 - GI/Abdominal Exam GI & Abdominal Exam: Normal Bowel Sounds Additional comments: s/p hernia repair; binder in place - Extremities Exam Extremities exam: Positive for: normal inspection, pedal pulses present. Negative for: pedal edema, tenderness - Neurological Exam Neurological exam: Alert, Oriented x3 - Psychiatric Exam Psychiatric exam: Normal Affect, Normal Mood - Skin Skin Exam: Dry, Normal Color, Warm Assessment and Plan - Assessment and Plan (Free Text) Assessment: 68 year old male with a history of COPD, CHF, CAD, and HLD, who presented with abdominal pain and was admitted for incarcerated hernia repair. Cardiology was consulted for cardiac clearance; however, surgery team performed repair under local anesthesia. Hospital course complicated with abnormal stress test. Plan: Cardiac clearance for surgery - Stress test: Small area of reversible perfusion defect - ECHO: apical hypokinesis, ~40% EF; f/u official report - Echo (11/2018): EF 41% w/mild to mod systolic dysfunction and diastolic dysfunction CHF - Continue Coreg 3.125mg PO BID, Cozaar 25mg PO daily HLD - Continue Crestor 5mg PO HS Dispo: Patient refused catherization this morning. He was was expained the risk of refusing treatment including sudden cardiac , IA, and fatal arrhythmia. Patient states he understands the risk and he still does not wish to have the cath. He states that a friend had a bad experience with one. Patient told he should make an appointment with cardiology and follow up within 1 week. Patient agreed. Case discussed with Dr. Noe Lord, PGY2 <Harris Liu - Last Filed: 02/20/19 07:58> Objective - Vital Signs/Intake and Output Vital Signs (last 24 hours): Temp Pulse Resp BP Pulse Ox 97.9 F 90 20 128/82 95 02/19/19 07:00 02/19/19 09:15 02/19/19 07:00 02/19/19 09:15 02/19/19 07:00 - Labs Labs: 02/19/19 06:30 02/19/19 06:30 PT 12.3 SECONDS (9.7-12.2) H 02/17/19 11:01 INR 1.1 02/17/19 11:01 APTT 37 SECONDS (21-34) H 02/17/19 11:01 Assessment and Plan - Assessment and Plan (Free Text) Plan: Patient seen and personally evaluated by me. Patient advised to undergo cardiac cath due to abnormal stress test. Does not want any heart procedures. Understands the risk of heart attack. ASA 81 mg po added to regimen. Advised to avoid strenuous activity including sex till further cardiac work up done. Advised to call 911 if any chest discomfort or dyspnea. Advised to follow with my office in 1 week. Phone number and address of my office location given to the patient
--- NOTE | 2019-02-19 14:13 | CP.PCM.DIS ---
<Clarisse Gabriel P - Last Filed: 02/19/19 22:18> Provider - Provider Date of Admission: 02/17/19 00:55 Attending physician: Eloina Garsia MD Consults: 02/17/19 02:03 Podiatry Consult Routine Comment: Consulting Provider: Jessica Nassar Consulting Physician: Jessica Nassar Reason for Consult: Hx of R foot Sx 02/17/19 02:04 Cardiology Consult Routine Comment: Consulting Provider: Harris Liu Consulting Physician: Harris Liu Reason for Consult: Hx CHF, clearance for Sx General Surgery Consult Routine Comment: Consulting Provider: Kenrick Baeza Consulting Physician: Kenrick Baeza Reason for Consult: incarcerated ventral hernia 02/17/19 08:16 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 Comment: Physician Instructions: Reason For Exam: New admission Time Spent in preparation of Discharge (in minutes): 35 Diagnosis - Discharge Diagnosis (1) Incarcerated hernia Status: Acute (2) COPD (chronic obstructive pulmonary disease) Status: Chronic (3) CHF (congestive heart failure) Status: Chronic Hospital Course - Lab Results Lab Results: Most Recent Lab Values WBC 6.6 K/uL (4.8-10.8) 02/19/19 06:30 RBC 4.39 Mil/uL (4.40-5.90) L 02/19/19 06:30 Hgb 13.7 g/dL (12.0-18.0) 02/19/19 06:30 Hct 40.4 % (35.0-51.0) 02/19/19 06:30 MCV 92.1 fL (80.0-94.0) 02/19/19 06:30 MCH 31.3 pg (27.0-31.0) H 02/19/19 06:30 MCHC 34.0 g/dL (33.0-37.0) 02/19/19 06:30 RDW 13.5 % (11.5-14.5) 02/19/19 06:30 Plt Count 204 K/uL (130-400) 02/19/19 06:30 MPV 8.9 fL (7.2-11.7) 02/19/19 06:30 Neut % (Auto) 52.9 % (50.0-75.0) 02/19/19 06:30 Lymph % (Auto) 27.2 % (20.0-40.0) 02/19/19 06:30 [place] % (Auto) 11.0 % (0.0-10.0) H 02/19/19 06:30 Eos % (Auto) 8.1 % (0.0-4.0) H 02/19/19 06:30 Baso % (Auto) 0.8 % (0.0-2.0) 02/19/19 06:30 Neut # (Auto) 3.5 K/uL (1.8-7.0) 02/19/19 06:30 Lymph # (Auto) 1.8 K/uL (1.0-4.3) 02/19/19 06:30 [place] # (Auto) 0.7 K/uL (0.0-0.8) 02/19/19 06:30 Eos # (Auto) 0.5 K/uL (0.0-0.7) 02/19/19 06:30 Baso # (Auto) 0.1 K/uL (0.0-0.2) 02/19/19 06:30 PT 12.3 SECONDS (9.7-12.2) H 02/17/19 11:01 INR 1.1 02/17/19 11:01 APTT 37 SECONDS (21-34) H 02/17/19 11:01 Puncture Site Rrad 02/17/19 10:32 pCO2 35 mm/Hg (35-45) 02/17/19 10:32 pO2 171 mm/Hg (80-100) H 02/17/19 10:32 HCO3 26.0 mmol/L (21-28) 02/17/19 10:32 ABG pH 7.46 (7.35-7.45) H 02/17/19 10:32 ABG Total CO2 26.0 mmol/L (22-28) 02/17/19 10:32 ABG O2 Saturation 99.9 % (95-98) H 02/17/19 10:32 ABG Base Excess 1.4 mmol/L (-2.0-3.0) 02/17/19 10:32 ABG Hemoglobin 14.1 g/dL (11.7-17.4) 02/17/19 10:32 ABG Carboxyhemoglobin 1.8 % (0.5-1.5) H 02/17/19 10:32 POC ABG HHb (Measured) 0.1 % (0.0-5.0) 02/17/19 10:32 ABG Methemoglobin 1.4 % (0.0-3.0) 02/17/19 10:32 Prasanth Test Pos 02/17/19 10:32 VBG pH 7.41 (7.32-7.43) 02/16/19 21:25 VBG pCO2 32 mmHg (40-60) L 02/16/19 21:25 VBG HCO3 21.9 mmol/L 02/16/19 21:25 VBG Total CO2 21.3 mmol/L (22-28) L 02/16/19 21:25 VBG O2 Sat (Calc) 87.7 % (40-65) H 02/16/19 21:25 VBG Base Excess -3.4 mmol/L (0.0-2.0) L 02/16/19 21:25 VBG Potassium 2.6 mmol/L (3.6-5.2) L 02/16/19 21:25 Hgb O2 Saturation 96.8 % (95.0-98.0) 02/17/19 10:32 Sodium 146.0 mmol/l (132-148) 02/16/19 21:25 Chloride 115.0 mmol/L (98-107) H 02/16/19 21:25 Glucose 61 mg/dl (75-110) L 02/16/19 21:25 Lactate 1.3 mmol/L (0.7-2.1) 02/16/19 21:25 Liter Flow 6.0 02/17/19 10:32 Sodium 135 mmol/L (132-148) 02/19/19 06:30 Potassium 3.8 mmol/L (3.6-5.2) 02/19/19 06:30 Chloride 101 mmol/L (98-107) 02/19/19 06:30 Carbon Dioxide 29 mmol/L (22-30) 02/19/19 06:30 Anion Gap 9 (10-20) L 02/19/19 06:30 BUN 12 mg/dL (9-20) 02/19/19 06:30 Creatinine 1.3 mg/dL (0.8-1.5) 02/19/19 06:30 Est GFR ( Amer) > 60 02/19/19 06:30 Est GFR (Non-Af Amer) 55 02/19/19 06:30 Random Glucose 99 mg/dL (75-110) 02/19/19 06:30 Calcium 8.8 mg/dl (8.6-10.4) 02/19/19 06:30 Phosphorus 3.9 mg/dL (2.5-4.5) 02/19/19 06:30 Magnesium 2.3 mg/dL (1.6-2.3) 02/19/19 06:30 Total Bilirubin 0.8 mg/dL (0.2-1.3) 02/19/19 06:30 AST 28 U/L (17-59) 02/19/19 06:30 ALT 14 U/L (21-72) L D 02/19/19 06:30 Alkaline Phosphatase 63 U/L (38-126) 02/19/19 06:30 NT-Pro-B Natriuret Pep 125 pg/mL (0-900) 02/17/19 11:01 Total Protein 6.7 g/dL (6.3-8.3) 02/19/19 06:30 Albumin 3.9 g/dL (3.5-5.0) 02/19/19 06:30 Globulin 2.9 gm/dL (2.2-3.9) 02/19/19 06:30 Albumin/Globulin Ratio 1.4 (1.0-2.1) 02/19/19 06:30 Lipase 111 U/L (23-300) 02/16/19 21:31 Venous Blood Potassium 2.6 mmol/L (3.6-5.2) L 02/16/19 21:25 Urine Color Yellow (YELLOW) 02/16/19 22:34 Urine Clarity Clear (Clear) 02/16/19 22:34 Urine pH 6.0 (5.0-8.0) 02/16/19 22:34 Ur Specific [place] 1.016 (1.003-1.030) 02/16/19 22:34 Urine Protein Negative mg/dL (NEGATIVE) 02/16/19 22:34 Urine Glucose (UA) Normal mg/dL (Normal) 02/16/19 22:34 Urine Ketones Negative mg/dL (NEGATIVE) 02/16/19 22:34 Urine Blood Negative (NEGATIVE) 02/16/19 22:34 Urine Nitrate Negative (NEGATIVE) 02/16/19 22:34 Urine Bilirubin Negative (NEGATIVE) 02/16/19 22:34 Urine Urobilinogen Normal mg/dL (0.2-1.0) 02/16/19 22:34 Ur Leukocyte Esterase Neg [place]/uL (Negative) 02/16/19 22:34 Urine WBC (Auto) 1 /hpf (0-5) 02/16/19 22:34 Urine RBC (Auto) 2 /hpf (0-3) 02/16/19 22:34 Ur Squamous Epith Cells < 1 /hpf (0-5) 02/16/19 22:34 Blood Type A POSITIVE 02/17/19 11:01 Antibody Screen Negative 02/17/19 11:01 - Hospital Course Hospital Course: On admission: Mr. Vargas is a M with a PMH CHF, COPD, HLD, CAD presents to the ED with irreducible bump in his stomach. He reports having a hernia for years, but after coughing fit this afternoon, the bump does not go down and started to hurt. He was able to eat lunch immediately before the bursting sensation. He has not had a BM nor passed gas since the bursting feeling. Walking, sitting up, and coughin g make the bulge bigger. The patient did not do anything to try to make the bulge smaller. Denies fever, chills, chest pain, shortness of breath, headache, palpitations. He recently got foot surgery with Dr. Nassar. He has been attending follow up appointments but still has two sutures remaining. Hospital Course: Patient admitted for incarcerated hernia. A CT of the abdomen and pelvis with contrast was obtained on 02/16 showed a fat containing ventral hernia containing with stranding suggesting the possibility of strangulation or incarceration. (see full report. 1L NS, Zofran x1, Morphine 2mg, Protonix was given in ED. Dr. Baeza, general surgery was consulted. Dr. Liu was consulted for cardiac optimization. Due to risk of strangulation, patient was taken to OR prior to complete cardiac work up on 02/17. The incarcerated ventral hernia was repaired under local anesthesia and patient tolerated well. Patient's cardiac work up was resumed following surgery and consisted of the following CXR: no acute cardiopulm dz, EKG showed NSR, LBBB and left axis deviation, unchanged from 2017. ECHO02/17/19: apical hypokinesis, 40-45%, global hypokinesis, LV motion suggestive of conduction abnormality; pericardial fat pad. Stress test: Small area of reversible perfusion defect BNP: 125 Patient was treated with home meds: Coreg 3.125mg po BID, Cozaar 25mg po daily Due to abnormal stress test, patient was recommeded to have cardiac catheterization. However, patient refused and signed out AMA. Risks of refusing treatment was reviewed with patient and he expressed understanding, however continued to decline cardiac cath. AMA: Patient is signing out against medical advice. He should follow up with his PMD Dr. Gamino within one week of discharge. Patient is to also follow up with Dr. Baeza, general surgeon at his office within one week of discharge. Dr. Baeza's office is located at [address] [place] [address]. Call [phone] to make an appointment. Patient is to follow up with Heel Scorer Dr. Liu, or obtain a referral to see another furniture manager from his primary doctor. Patient is highly recommended to have a cardiac catheterization due to an abnormal stress test. Patient is to follow up with Dr. Garcia, pulmonology, as well as his house officer, Dr. Nassar. Patient is to continue all his home medications He is also to take Aspirin 81mg PO daily Return to ER for new or worsening symptoms. Discharge Exam - Additional Findings Additional findings: - Constitutional Appears: Non-toxic, No Acute Distress - Head Exam Head Exam: ATRAUMATIC, NORMOCEPHALIC - Eye Exam Eye Exam: EOMI, Normal appearance, PERRL - ENT Exam ENT Exam: Mucous Membranes Moist - Neck Exam Neck Exam: Full ROM - Respiratory Exam Respiratory Exam: Clear to Ausculation Bilateral. absent: Rales, Rhonchi, Wheezes, Respiratory Distress - Cardiovascular Exam Cardiovascular Exam: REGULAR RHYTHM, +S1, +S2 - GI/Abdominal Exam GI & Abdominal Exam: Normal Bowel Sounds. absent: Distended, Firm, Guarding, Rigid, Tenderness Additional comments: abdominal binder in place. - Extremities Exam Extremities Exam: Full ROM, Normal Capillary Refill, Normal Inspection. absent: Calf Tenderness, Pedal Edema, Tenderness Additional comments: Stitches to R lateral foot, healing well, no signs of infection - Neurological Exam Neurological Exam: Alert, Awake, Oriented x3. Moving all extremities equally. - Psychiatric Exam Psychiatric exam: Normal Affect, Normal Mood - Skin Skin Exam: Dry, Normal Color, Warm Discharge Plan - Follow Up Plan Condition: GUARDED Disposition: AGAINST MEDICAL ADVICE Instructions: Abdominal Hernia Repair, Open Surgery Additional Instructions: Patient is signing out against medical advice. He should follow up with his PMD Dr. Gamino within one week of discharge. Patient is to also follow up with Dr. Baeza, general surgeon at his office in one week of discharge. Dr. Baeza's office is located at [address] [place] [address]. Call [phone] to make an appointment. Patient is to follow up with Heel Scorer Dr. Liu, or obtain a referral to see another furniture manager from his primary doctor. Patient is highly recommended to have a cardiac catheterization due to an abnormal stress test. Patient is to follow up with Dr. Garcia, as well as his house officer, Dr. Nassar. Patient is to continue all his home medications He is also to take Aspirin 81mg PO daily Return to ER for new or worsening symptoms. Referrals: Madi Garcia MD [Staff Provider] - Kenrick Baeza MD [Staff Provider] - Harris Liu MD [Staff Provider] - Jessica Nassar DPM [Staff Provider] - <Eloina Garsia - Last Filed: 02/20/19 18:06> Provider - Provider Date of Admission: 02/17/19 00:55 Attending physician: Eloina Garsia MD Consults: 02/17/19 02:03 Podiatry Consult Routine Comment: Consulting Provider: Jessica Nassar Consulting Physician: Jessica Nassar Reason for Consult: Hx of R foot Sx 02/17/19 02:04 Cardiology Consult Routine Comment: Consulting Provider: Harris Liu Consulting Physician: Harris Liu Reason for Consult: Hx CHF, clearance for Sx General Surgery Consult Routine Comment: Consulting Provider: Kenrick Baeza Consulting Physician: Kenrick Baeza Reason for Consult: incarcerated ventral hernia 02/17/19 08:16 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 Comment: Physician Instructions: Reason For Exam: New admission Hospital Course - Lab Results Lab Results: Most Recent Lab Values WBC 6.6 K/uL (4.8-10.8) 02/19/19 06:30 RBC 4.39 Mil/uL (4.40-5.90) L 02/19/19 06:30 Hgb 13.7 g/dL (12.0-18.0) 02/19/19 06:30 Hct 40.4 % (35.0-51.0) 02/19/19 06:30 MCV 92.1 fL (80.0-94.0) 02/19/19 06:30 MCH 31.3 pg (27.0-31.0) H 02/19/19 06:30 MCHC 34.0 g/dL (33.0-37.0) 02/19/19 06:30 RDW 13.5 % (11.5-14.5) 02/19/19 06:30 Plt Count 204 K/uL (130-400) 02/19/19 06:30 MPV 8.9 fL (7.2-11.7) 02/19/19 06:30 Neut % (Auto) 52.9 % (50.0-75.0) 02/19/19 06:30 Lymph % (Auto) 27.2 % (20.0-40.0) 02/19/19 06:30 [place] % (Auto) 11.0 % (0.0-10.0) H 02/19/19 06:30 Eos % (Auto) 8.1 % (0.0-4.0) H 02/19/19 06:30 Baso % (Auto) 0.8 % (0.0-2.0) 02/19/19 06:30 Neut # (Auto) 3.5 K/uL (1.8-7.0) 02/19/19 06:30 Lymph # (Auto) 1.8 K/uL (1.0-4.3) 02/19/19 06:30 [place] # (Auto) 0.7 K/uL (0.0-0.8) 02/19/19 06:30 Eos # (Auto) 0.5 K/uL (0.0-0.7) 02/19/19 06:30 Baso # (Auto) 0.1 K/uL (0.0-0.2) 02/19/19 06:30 PT 12.3 SECONDS (9.7-12.2) H 02/17/19 11:01 INR 1.1 02/17/19 11:01 APTT 37 SECONDS (21-34) H 02/17/19 11:01 Puncture Site Rrad 02/17/19 10:32 pCO2 35 mm/Hg (35-45) 02/17/19 10:32 pO2 171 mm/Hg (80-100) H 02/17/19 10:32 HCO3 26.0 mmol/L (21-28) 02/17/19 10:32 ABG pH 7.46 (7.35-7.45) H 02/17/19 10:32 ABG Total CO2 26.0 mmol/L (22-28) 02/17/19 10:32 ABG O2 Saturation 99.9 % (95-98) H 02/17/19 10:32 ABG Base Excess 1.4 mmol/L (-2.0-3.0) 02/17/19 10:32 ABG Hemoglobin 14.1 g/dL (11.7-17.4) 02/17/19 10:32 ABG Carboxyhemoglobin 1.8 % (0.5-1.5) H 02/17/19 10:32 POC ABG HHb (Measured) 0.1 % (0.0-5.0) 02/17/19 10:32 ABG Methemoglobin 1.4 % (0.0-3.0) 02/17/19 10:32 Prasanth Test Pos 02/17/19 10:32 VBG pH 7.41 (7.32-7.43) 02/16/19 21:25 VBG pCO2 32 mmHg (40-60) L 02/16/19 21:25 VBG HCO3 21.9 mmol/L 02/16/19 21:25 VBG Total CO2 21.3 mmol/L (22-28) L 02/16/19 21:25 VBG O2 Sat (Calc) 87.7 % (40-65) H 02/16/19 21:25 VBG Base Excess -3.4 mmol/L (0.0-2.0) L 02/16/19 21:25 VBG Potassium 2.6 mmol/L (3.6-5.2) L 02/16/19 21:25 Hgb O2 Saturation 96.8 % (95.0-98.0) 02/17/19 10:32 Sodium 146.0 mmol/l (132-148) 02/16/19 21:25 Chloride 115.0 mmol/L (98-107) H 02/16/19 21:25 Glucose 61 mg/dl (75-110) L 02/16/19 21:25 Lactate 1.3 mmol/L (0.7-2.1) 02/16/19 21:25 Liter Flow 6.0 02/17/19 10:32 Sodium 135 mmol/L (132-148) 02/19/19 06:30 Potassium 3.8 mmol/L (3.6-5.2) 02/19/19 06:30 Chloride 101 mmol/L (98-107) 02/19/19 06:30 Carbon Dioxide 29 mmol/L (22-30) 02/19/19 06:30 Anion Gap 9 (10-20) L 02/19/19 06:30 BUN 12 mg/dL (9-20) 02/19/19 06:30 Creatinine 1.3 mg/dL (0.8-1.5) 02/19/19 06:30 Est GFR ( Amer) > 60 02/19/19 06:30 Est GFR (Non-Af Amer) 55 02/19/19 06:30 Random Glucose 99 mg/dL (75-110) 02/19/19 06:30 Calcium 8.8 mg/dl (8.6-10.4) 02/19/19 06:30 Phosphorus 3.9 mg/dL (2.5-4.5) 02/19/19 06:30 Magnesium 2.3 mg/dL (1.6-2.3) 02/19/19 06:30 Total Bilirubin 0.8 mg/dL (0.2-1.3) 02/19/19 06:30 AST 28 U/L (17-59) 02/19/19 06:30 ALT 14 U/L (21-72) L D 02/19/19 06:30 Alkaline Phosphatase 63 U/L (38-126) 02/19/19 06:30 NT-Pro-B Natriuret Pep 125 pg/mL (0-900) 02/17/19 11:01 Total Protein 6.7 g/dL (6.3-8.3) 02/19/19 06:30 Albumin 3.9 g/dL (3.5-5.0) 02/19/19 06:30 Globulin 2.9 gm/dL (2.2-3.9) 02/19/19 06:30 Albumin/Globulin Ratio 1.4 (1.0-2.1) 02/19/19 06:30 Lipase 111 U/L (23-300) 02/16/19 21:31 Venous Blood Potassium 2.6 mmol/L (3.6-5.2) L 02/16/19 21:25 Urine Color Yellow (YELLOW) 02/16/19 22:34 Urine Clarity Clear (Clear) 02/16/19 22:34 Urine pH 6.0 (5.0-8.0) 02/16/19 22:34 Ur Specific [place] 1.016 (1.003-1.030) 02/16/19 22:34 Urine Protein Negative mg/dL (NEGATIVE) 02/16/19 22:34 Urine Glucose (UA) Normal mg/dL (Normal) 02/16/19 22:34 Urine Ketones Negative mg/dL (NEGATIVE) 02/16/19 22:34 Urine Blood Negative (NEGATIVE) 02/16/19 22:34 Urine Nitrate Negative (NEGATIVE) 02/16/19 22:34 Urine Bilirubin Negative (NEGATIVE) 02/16/19 22:34 Urine Urobilinogen Normal mg/dL (0.2-1.0) 02/16/19 22:34 Ur Leukocyte Esterase Neg [place]/uL (Negative) 02/16/19 22:34 Urine WBC (Auto) 1 /hpf (0-5) 02/16/19 22:34 Urine RBC (Auto) 2 /hpf (0-3) 02/16/19 22:34 Ur Squamous Epith Cells < 1 /hpf (0-5) 02/16/19 22:34 Blood Type A POSITIVE 02/17/19 11:01 Antibody Screen Negative 02/17/19 11:01 Attending/Attestation - Attestation I have personally seen and examined this patient.: Yes I have fully participated in the care of the patient.: Yes I have reviewed all pertinent clinical information, including history, physical exam and plan: Yes
== END 2019-02-19 14:52 | disposition left against medical advice (07) | DRG 354 ==
LOC: C.ER 19:51 → C.5S 02-17 00:55
PROVIDERS: ADMIT Internal Medicine; ATTEND Internal Medicine
PROC: 0WQF0ZZ Repair Abdominal Wall, Open Approach (ICD-10-PCS; principal; 2019-02-17 10:00)
DX: K43.6 Other and unspecified ventral hernia with obstruction, without gangrene (principal); I50.20 Unspecified systolic (congestive) heart failure; J43.9 Emphysema, unspecified; I25.10 Atherosclerotic heart disease of native coronary artery without angina pectoris; I11.0 Hypertensive heart disease with heart failure; E78.5 Hyperlipidemia, unspecified; Z87.891 Personal history of nicotine dependence; J44.9 Chronic obstructive pulmonary disease, unspecified; S92.311S Displaced fracture of first metatarsal bone, right foot, sequela